=== PATIENT | male | born 1960 | race Caucasian/White ===

== ENCOUNTER 2016-10-16 19:59 | Inpatient (IN) | payer MEDICARE ==
[~2016-10-16] VITALS: Ht 182.8 cm; Wt 104.5 kg
--- NOTE | ~2016-10-16 | CON ---
[place], [place] REPORT OF CONSULTATION NAME: CHEN LEON [facility] #: [id number] UNIT #: [id number] ROOM: 528 DOCTOR: GELY CARDOSO MD BIRTHDATE: [birth year] DOS: 10/17/2016 REASON FOR CONSULTATION: Assess for acute shortness of breath. HISTORY OF PRESENT ILLNESS: A 56-year-old white morbid male who has been known to me from the past, briefly seen in the office once in the hospital. He has been diagnosed with tobacco related interstitial and respiratory bronchiolitis, pulmonary fibrosis with pneumoconiosis. [facility] and has not been seen in my office since 2013. He has been admitted to the hospital, as he developed symptoms of increased shortness of breath that has been gradually worsen. 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 The patient was noted to be a very good historian and able to give me the history completely. The patient, however, was noted with oxygen dependency and use oxygen supplementation about 3 liters at rest and 8 liters with exertion and 4 liters at night. The patient does complain of symptoms of shortness breath, which has occurred recently. He has been noted with small amount of sputum expectoration with streaking amount of blood. He denies symptoms of chest pain with current symptom. The patient does have some symptoms of wheezing as well. REVIEW OF SYSTEMS: CONSTITUTIONAL SYMPTOMS: Fatigue and tiredness with naturopathy, fever. EYES: Denies any burning, redness, or tenderness. EARS, NOSE, THROAT: No sore throat, hoarseness, otalgia, postnasal drainage or epistaxis. CARDIOVASCULAR: Denies any pain, edema or pain of the lower extremities. GASTROINTESTINAL: Denies dysphagia, nausea, vomiting, diarrhea, abdominal pain, hematemesis, melena, or hematochezia. SKIN: Denies lesions or rashes. MUSCULOSKELETAL: Denies acute joint pain, redness, or tenderness. CENTRAL NERVOUS SYSTEM: Denies dizziness, headache, diplopia or seizures. Remaining systems were reviewed were noted all negative. PAST MEDICAL HISTORY: 1. 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 Details were unknown. 2. History of centrilobular emphysema. 3. Chronic obesity. 4. Chronic hypoxic respiratory failure, dependent on oxygen. PAST SURGICAL HISTORY: 1. Breast biopsy of the right upper lobe was done in [facility] on 12/01/2016. 2. Right knee arthroscopy. 3. Vocal cord polypectomy, which is benign. SOCIAL HISTORY: The patient lives at home. Denied any history of alcohol use or any illicit drugs. He has been noted tobacco use, 1 pack of cigarettes per day, started as teenager that was discontinued in 02/2014. [place], [place] REPORT OF CONSULTATION NAME: CHEN LEON UNIT #: [id number] ROOM: 528 DOCTOR: ULICES LOGAN MD,GELY BIRTHDATE: [birth year] FAMILY HISTORY: Mother with history of arthritis age of 8484 years old. Father history was not known at this time. HOME MEDICATIONS: Noted use of Proventil HFA inhaler, Fosamax, recent prescription of the amoxicillin, vitamin D, Advair 500/50, metoprolol tartrate, omeprazole, prednisone 30 mg daily, Bactrim DS and the Spiriva. DRUG ALLERGY HISTORY: No known drug allergies. PHYSICAL EXAMINATION: GENERAL: This is a 56-year-old white male who has been currently noted awake and alert without any acute distress at the time of assessment, using oxygen supplementation nasal cannula. VITAL SIGNS: Height is 6 feet, weight 230 pounds, BMI 31.2. Vital signs showed normal temperature, respiratory rate 20, heart rate 87-100, blood pressure 132/72 to 144/79. Intake for the patient 850, output was documented only 20 mL. Pulse ox saturation on 6 liters nasal cannula 96% saturation. HEENT: Head was atraumatic. Eyes nonicterus. NECK: Supple. Decreased posterior pharyngeal space. CARDIOVASCULAR: S1 and S2, audible. LUNGS: Moderate decreased breath sounds were noted with scattered crackles and wheezing. ABDOMEN: Soft, obese, and nontender. EXTREMITIES: No clubbing, cyanosis or edema, mild clubbing of the fingers of the hands were noted. The extremities shows rather tenderness. Cranial nerves 2-12 intact. No focal deficit. MUSCULOSKELETAL: Does not show any acute deformities. SKIN: No lesions or rashes. LABORATORY DATA: PTT yesterday was noted normal. Lactic acid was noted 2.1, 1.8 later on followup. Arterial blood gas 4 liters, pH 7.45, pCO2 of 38, pO2 of 66.2 on 4 L nasal cannula. CBC was yesterday on admission shows hemoglobin 8.2, hematocrit 26.0, platelet count 255,000. CMP on admission, BUN 22, creatinine 1.56, glucose normal, magnesium 1.1. CRP was noted 8.68. BMP this morning was noted as BUN 21, creatinine 1.40, glucose 160. CBC this morning, hemoglobin 7.9, hematocrit 24.7, platelet count 237,000. The Gram stain out of the sputum this morning, many white blood cells, few gram-positive cocci in pairs and chains. Chest x-ray, 1 view that was done this morning noted shows evidence of bilateral patchy infiltration that has been noted with previous chest x-ray of 03/11/2016. IMPRESSION: 1. History of interstitial lung disease with chronic hypoxic respiratory failure, oxygen dependency, currently presented to the hospital with acute infection, rather the patient has developed any superimposed acute pneumonia. The patient at this time cannot be clarified because of underlying based on abnormality of pulmonary fibrosis, known previously. 2. Possible acute ____ would be considered as well. 3. Hypomagnesemia. [place], [place] REPORT OF CONSULTATION NAME: CHEN LEON UNIT #: [id number] ROOM: 528 DOCTOR: GELY CARDOSO MD BIRTHDATE: [birth year] 4. Chronic obstructive pulmonary disease as well that has been known previous. 5. History of nocardia, which has been described previously as well. 6. Chronic steroid dependency as well. PLAN OF TREATMENT: Continue patient's home medication, in addition the patient has been started on doxycycline and currently getting Unasyn. Monitor culture results of the sputum. Obtain the medical records from the [facility]. Obtain a PA lateral chest x-ray at this time and also consider possibility of getting a CT scan of the chest if necessary for further assessment. Monitor respiratory status closely and titrate oxygen to maintain saturation 92% or greater. Usual care, other supportive therapy, plan of management and care. Further treatment changes will be done based on the progression of the illness. Continue the abstinence from tobacco use as well. The patient current body habitus was strongly suggestive of obstructive sleep apnea disorder to be considered and excluded with outpatient sleep study plan appropriate. GELY ELENA MD CM:CONSTR:REPORT OF CONSULTATION 1140 10/17/16 1258 interface
--- NOTE | ~2016-10-16 | PR ---
[place], [place] PROGRESS NOTE NAME: CHEN LEON UNIT #: [id number] ROOM: 528 DOCTOR: GELY CARDOSO MD BIRTHDATE: [birth year] DOS: 10/18/2016 SUBJECTIVE: He was still noted shortness of breath that worsened with mild exertion such as walking from his bed to the bathroom. He denies symptoms of chest pain. The cough has been noted mild to moderate, nonproductive at this time. OBJECTIVE: VITAL SIGNS: For the patient which has been recorded showed the temperature noted normal, respiratory rate 22, heart rate 88, blood pressure 125/70. HEENT: Examination shows head was atraumatic. Eyes: No icterus. Chronic obesity. NECK: Supple. CARDIOVASCULAR SYSTEM: S1, S2 audible. LUNGS: The patient noted inspiratory crackles noted with expiratory wheezing in the lungs bilaterally. ABDOMEN: Soft, nontender. LABORATORY DATA: BMP today was noted with sodium 133, BUN 22, creatinine 1.37. Remaining electrolytes were normal. CBC this morning, hemoglobin 7.7, hematocrit 23.9, platelet count normal at 253,000. The chest x-ray was done this morning, personally reviewed, shows bilateral diffuse pulmonary infiltration noted in the lungs with the previous known history of pulmonary fibrosis. By the technique or not for the patient at this time, difficult to determine if there is any partial improvement noted or if the infiltration appeared to the same. IMPRESSION: 1. The patient with history of interstitial pulmonary fibrosis, respiratory bronchiolitis related to the tobacco use. 2. Chronic hypoxic respiratory failure noted. 3. Acute exacerbation of chronic obstructive pulmonary disease as well. PLAN OF TREATMENT: No changes in the plan of therapy at this time. Continue the patient's current treatment, plan of management at this time. Continue other supportive care and treatment as in progress. Further treatment changes will be done based on the progression of the illness. No immediate treatment changes need to be done. Continuation of corticosteroids, bronchodilators, antibiotics, and other treatment as in progress. Continue the oxygen supplementation to maintain a saturation of 92% or greater. [place], [place] PROGRESS NOTE NAME: CHEN LEON UNIT #: [id number] ROOM: 528 DOCTOR: GELY CARDOSO MD BIRTHDATE: [birth year] GELY ELENA MD CM:BENSON [id number] GELY LOGAN MD 10/18/16 1042 interface
--- NOTE | ~2016-10-16 | PR ---
[place], [place] PROGRESS NOTE [id number] UNIT #: [id number] ROOM: 528 DOCTOR: ULICES LOGAN MD,GELY BIRTHDATE: [birth year] DOS: 10/20/2016 PULMONARY FOLLOWUP SUBJECTIVE: He has been noted comfortable at this time without any distress. Continue antibiotics, patient bronchodilators and other medical management. The shortness of breath has been noted still present, but gradual reduction noted. OBJECTIVE: VITAL SIGNS: Normal temperature, respiratory rate 20, heart rate 84, blood pressure 140/80. Pulse oxygen saturation on 4 liters nasal cannula 97% saturation. HEENT: Showed no new change. NECK: Supple. CARDIOVASCULAR: S1, S2 audible. LUNGS: The patient was noted without any changes. Scattered expiratory wheezing was noted, inspiratory crackles. ABDOMEN: Soft, nontender. Bowel sounds present. LABORATORY DATA: Blood culture for the patient from 10/16 showed no bacterial growth. Sputum culture was noted with isolation of yeast as well. BMP this morning; normal BUN and creatinine. CBC this morning, hemoglobin 8.1 and 25.6. Platelet count and WBC count were noted as normal. IMPRESSION: The patient with resolving acute exacerbation of chronic obstructive pulmonary disease with acute tracheobronchitis, history of chronic pulmonary fibrosis was noted as well. PLAN AND MANAGEMENT: Continue the steroids, bronchodilators, antibiotics, and other treatment as in progress. Usual care. Supportive plan of management and therapies. GELY ELENA MD CM:PNJOSE [id number] GELY LOGAN MD 10/20/16 1502 interface
--- NOTE | ~2016-10-16 | PR ---
[place], [place] PROGRESS NOTE NAME: CHEN LEON UNIT #: [id number] ROOM: 528 DOCTOR: GELY CARDOSO MD BIRTHDATE: [birth year] DOS: 10/19/2016 SUBJECTIVE: He reported reduction in shortness breath partially from yesterday. Still noted with shortness of breath with mild physical activity. Denies any symptoms of chest pain. Cough has been noted with only small amount of sputum expectoration. Denies any symptoms of chest pain or any abdominal pain. OBJECTIVE: VITAL SIGNS: For the patient which were recorded showed the temperature of the patient recorded as normal this morning, respiratory rate 18, heart rate of 92, blood pressure 144/74. HEENT: Examination shows head was atraumatic. Eyes nonicterus. NECK: Supple. CARDIOVASCULAR: S1, S2 is audible. LUNGS: Mild to moderate expiratory wheezing. Crackles of the lungs noted chronic bilaterally. ABDOMEN: Soft, nontender. LABORATORY DATA: CBC this morning was noted, WBC count normal, hemoglobin 7.7, hematocrit 24.1, platelet count of 228,000. Culture of the sputum was noted moderate growth of yeast, was noted with normal venkata isolation. IMPRESSION: 1. Currently noted with ongoing acute or chronic severe hypoxic respiratory failure with history of underlying pulmonary fibrosis. 2. Acute exacerbation of chronic obstructive pulmonary disease as well. 3. Acute tracheobronchitis, possibility of pneumonia can be completely excluded for the patient based on the current assessment of the chest x-ray of the patient because of underlying severe pulmonary fibrosis. 4. Anemia, at this time etiology is unclear. PLAN OF TREATMENT: Reduce the Solu-Medrol. Continue bronchodilators, oxygen supplementation and monitor respiratory symptoms. Ambulation was encouraged. Usual care, other supportive therapy, plan of management and care. Usual treatment. Other treatment plan and management will be done based on progression of the illness. [place], [place] PROGRESS NOTE NAME: CHEN LEON UNIT #: [id number] ROOM: 528 DOCTOR: GELY CARDOSO MD BIRTHDATE: [birth year] GELY ELENA MD CM:PNTRANS [id number] GELY LOGAN MD 10/19/16 1338 interface
[~2016-10-16 19:59] MED LIST: ACETAMINOPHEN500 M4 PO; ADVAIR 500/501 E1 INH; ALBUTEROL0.09 MG/A2 INH; ALENDRONATE SOD70 M1 PO; AMOXICILLIN875 MG PO; BACTRIM 400 MG-1 TAB PO; CALCIUM 600 +1 EA11 PO; COMBIVENT RESPIM4 GM INH; DELTASONE10 MG PO; ETHAMBUTOL HYD400 MG PO; FOSAMAX70 M1 PO; HYDROCODONE BIT1 T11 PO; IBUPROFEN 200200 MG PO; ISONIAZID300 MG PO; LEVOFLOXACIN500 MG PO; NAPROXEN500 MG PO; OMEPRAZOLE20 M2 PO; ONDANSETRON8 MG PO; PREDNICOT10 MG PO; PREDNISONE10 M1 PO; PREDNISONE5 MG PO; PRILOSEC20 M1 PO; PROVENTIL0.09 MG/A1 INH; PYRAZINAMIDE500 MG PO; PYRIDOXINE HCL50 MG PO; RIFADIN PO; RIFADIN300 MG PO; SPIRIVA -- 3018 MCG INH; SULFAMETHOXAZOL1 TA1 PO; SYMBICORT1 AE1 INH; TOPROL XL25 MG PO; VITAMIN D31000 I1 PO; VITAMIN D32000 UNI1 PO; ZITHROMAX Z PA250 MG PO; ZOCOR40 MG PO; ZYRTEC10 MG PO
[2016-10-16 20:10] VITALS: BP 121/82
[2016-10-16 20:47] LABS: HEMOGLOBIN 8.3 g/dl (14.0-18.0); MEAN CELL VOLUME 94.9 fl (80.0-94.0); MEAN CORPUSCULAR HGB 30.3 pg (27.0-31.0); MEAN CORPUSCULAR HGB CONC 31.9 g/dl (33.0-37.0); MEAN PLATELET VOLUME 8.5 fl (9.6-12.3); PLATELET COUNT AUTOMATED 255 10*3/uL (130-400); RED BLOOD COUNT 2.74 10*6/uL (4.50-5.90); RED CELL DISTRI WIDTH 15.5 % (0-14.5); WHITE BLOOD COUNT 7.7 10*3/uL (4.8-10.8)
[2016-10-16 20:54] LABS: PROTHROMBIN TIME 10.8 SECONDS (9.0-12.4)
[2016-10-16 21:03] LABS: ALKALINE PHOSPHATASE 80 U/L (45-117); BILIRUBIN, TOTAL 0.2 mg/dl (0.2-1.0); BUN 22 mg/dl (7-24); C-REACTIVE PROTEIN 8.68 MG/DL (0-0.3); CARBON DIOXIDE 26 mmol/L (21-32); CHLORIDE 100 mmol/L (98-107); EST GLOM FILT AFRICAN AMERICAN 56 ml/min; GLUCOSE 102 mg/dL (65-99); MAGNESIUM 1.1 mg/dL (1.5-2.1); POTASSIUM 4.3 mmol/L (3.5-5.1); SGOT/AST 19 IU/L (3-35); SGPT/ALT 31 U/L (12-78); SODIUM 137 mmol/L (136-145); TOTAL PROTEIN 6.9 gm/dL (6.4-8.2)
[2016-10-16 21:04] LABS: TROPONIN I < 0.015 ng/ml (<0.045)
[2016-10-16 21:06] LABS: LYMPHOCYTE # 0.2 10*3/uL (1.3-4.4); MONOCYTE # 0.3 10*3/uL (0.1-1.0); NEUTROPHIL # 7.2 10*3/uL (2.3-7.9); NEUTROPHILS 94 % (47-73); TOTAL CELLS COUNTED 100 #CELLS
[2016-10-16 21:07] LABS: PLATELET SUFFICIENCY NORMAL (NORMAL)
[2016-10-16 21:46] LABS: ABG BASE EXCESS 2.9 mmol/L (-2.0-2.0); ABG CO2 CONTENT 27.9 mmol/L (23-27); ABG HCO3 26.7 mmol/l (22-26); ARTERIAL BLOOD GAS PH 7.451 (7.35-7.45); ARTERIAL BLOOD GAS PO2 66.2 mmHg (80-90)
[2016-10-16 22:10] VITALS: BP 132/72
[2016-10-16 22:42] LABS: LA>2 REFLEX 2 HR DRAW NOW
[2016-10-16 23:00] VITALS: BP 114/71
[2016-10-16 23:30] VITALS: BP 124/74
[2016-10-17] VITALS: BP 124/74
[2016-10-17] MEDS ORDERED: AMIKIN500 MG/2 M IV (00:37)
[2016-10-17 05:58] LABS: HEMATOCRIT 24.7 % (42.0-52.0); HEMOGLOBIN 7.9 g/dl (14.0-18.0); MEAN CELL VOLUME 95.7 fl (80.0-94.0); MEAN CORPUSCULAR HGB 30.6 pg (27.0-31.0); MEAN PLATELET VOLUME 8.8 fl (9.6-12.3); PLATELET COUNT AUTOMATED 238 10*3/uL (130-400); RED BLOOD COUNT 2.58 10*6/uL (4.50-5.90); RED CELL DISTRI WIDTH 15.5 % (0-14.5); WHITE BLOOD COUNT 6.1 10*3/uL (4.8-10.8)
[2016-10-17 06:29] LABS: BUN 21 mg/dl (7-24); CARBON DIOXIDE 26 mmol/L (21-32); CHLORIDE 99 mmol/L (98-107); CHOLESTEROL 146 mg/dL (<200); EST GLOM FILT AFRICAN AMERICAN > 60 ml/min; FREE T4 0.72 ng/dl (0.76-1.46); GLUCOSE 160 mg/dL (65-99); HDL CHOLESTEROL 71 mg/dl (40-60); LDL CHOLESTEROL 65 mg/dL (9-159); MAGNESIUM 1.8 mg/dL (1.5-2.1); PHOSPHOROUS 3.7 mg/dL (2.5-4.9); POTASSIUM 4.1 mmol/L (3.5-5.1); SODIUM 136 mmol/L (136-145); TRIGLYCERIDES 51 mg/dl (<150); VLDL CHOLESTEROL 10 mg/dL (6-40)
[2016-10-17 06:35] LABS: PROTHROMBIN TIME 10.9 SECONDS (9.0-12.4)
[2016-10-17 06:39] LABS: THYROID STIM HORMONE (HS) 0.915 uIU/ml (0.358-4.75)
[2016-10-17 07:11] LABS: HYPOCHROMIA SLIGHT; MONOCYTE # 0.1 10*3/uL (0.1-1.0); NEUTROPHILS 98 % (47-73); PLATELET SUFFICIENCY NORMAL (NORMAL); TOTAL CELLS COUNTED 100 #CELLS
[2016-10-17 07:34] LABS: FOLIC ACID 1.94 ng/mL (>5.38); VITAMIN D, 25-HYDROXY 36.1 ng/mL (30-100)
[2016-10-17 08:00] VITALS: BP 144/79
[2016-10-17 11:41] VITALS: BP 126/74
[2016-10-17 13:34] LABS: BILIRUBIN NEGATIVE (NEGATIVE); BLOOD TRACE-INTACT (NEGATIVE); CLARITY SL CLOUDY (CLEAR); COLOR YELLOW (YELLOW); GLUCOSE 1+ (NEGATIVE); KETONE NEGATIVE (NEGATIVE); LEUKO ESTERASE NEGATIVE (NEGATIVE); NITRITE NEGATIVE (NEGATIVE); PROTEIN TRACE (NEGATIVE); SPECIFIC GRAVITY >= 1.030 (1.005-1.030); UROBILINOGEN 0.2 E.U./dl (0.2-1.0)
[2016-10-17 13:51] LABS: URIC ACID CRYSTALS 2+; URINE REFLEX COMMENT NO (NO); WBC 0-2 wbc/hpf (0-5)
[2016-10-17 16:00] VITALS: BP 140/73
[2016-10-17 20:00] VITALS: BP 133/81
[2016-10-18] VITALS: BP 138/82
[2016-10-18 07:03] LABS: HEMATOCRIT 23.9 % (42.0-52.0); HEMOGLOBIN 7.7 g/dl (14.0-18.0); MEAN CORPUSCULAR HGB 30.9 pg (27.0-31.0); MEAN CORPUSCULAR HGB CONC 32.2 g/dl (33.0-37.0); MEAN PLATELET VOLUME 8.7 fl (9.6-12.3); PLATELET COUNT AUTOMATED 253 10*3/uL (130-400); RED BLOOD COUNT 2.49 10*6/uL (4.50-5.90); RED CELL DISTRI WIDTH 15.7 % (0-14.5); WHITE BLOOD COUNT 8.7 10*3/uL (4.8-10.8)
[2016-10-18 07:19] LABS: BUN 22 mg/dl (7-24); CARBON DIOXIDE 24 mmol/L (21-32); CHLORIDE 102 mmol/L (98-107); EST GLOM FILT AFRICAN AMERICAN > 60 ml/min; GLUCOSE 133 mg/dL (65-99); POTASSIUM 4.2 mmol/L (3.5-5.1); SODIUM 136 mmol/L (136-145)
[2016-10-18 07:23] LABS: LYMPHOCYTE # 0.1 10*3/uL (1.3-4.4); MONOCYTE # 0.5 10*3/uL (0.1-1.0); NEUTROPHIL # 8.1 10*3/uL (2.3-7.9); NEUTROPHILS 93 % (47-73); PLATELET SUFFICIENCY NORMAL (NORMAL); POLYCHROMASIA SLIGHT; TOTAL CELLS COUNTED 100 #CELLS
[2016-10-18 08:00] VITALS: BP 125/78
[2016-10-18 12:00] VITALS: BP 135/60
[2016-10-18 16:00] VITALS: BP 133/87
[2016-10-18 20:00] VITALS: BP 129/72
[2016-10-19] VITALS: BP 131/85
[2016-10-19 05:44] LABS: HEMATOCRIT 24.1 % (42.0-52.0); HEMOGLOBIN 7.7 g/dl (14.0-18.0); MEAN CELL VOLUME 96.8 fl (80.0-94.0); MEAN CORPUSCULAR HGB 30.9 pg (27.0-31.0); MEAN PLATELET VOLUME 8.3 fl (9.6-12.3); NUCLEATED RED BLOOD CELL 0.2 % (0.0-0.0); PLATELET COUNT AUTOMATED 228 10*3/uL (130-400); RED BLOOD COUNT 2.49 10*6/uL (4.50-5.90); RED CELL DISTRI WIDTH 15.8 % (0-14.5); WHITE BLOOD COUNT 9.1 10*3/uL (4.8-10.8)
[2016-10-19 06:02] LABS: BUN 17 mg/dl (7-24); CARBON DIOXIDE 25 mmol/L (21-32); CHLORIDE 103 mmol/L (98-107); EST GLOM FILT AFRICAN AMERICAN > 60 ml/min; GLUCOSE 129 mg/dL (65-99); POTASSIUM 4.4 mmol/L (3.5-5.1); SODIUM 136 mmol/L (136-145)
[2016-10-19 06:50] LABS: LYMPHOCYTE # 0.1 10*3/uL (1.3-4.4); MONOCYTE # 0.1 10*3/uL (0.1-1.0); NEUTROPHIL # 8.9 10*3/uL (2.3-7.9); NEUTROPHILS 98 % (47-73); PLATELET SUFFICIENCY NORMAL (NORMAL); POLYCHROMASIA SLIGHT; TOTAL CELLS COUNTED 100 #CELLS
[2016-10-19 08:00] VITALS: BP 144/74
[2016-10-19 12:00] VITALS: BP 136/76
[2016-10-19 12:07] LABS: ACID FAST SPEC PROCESSING Concentration (.)
[2016-10-19 12:07] LABS: ORGANISM ID Not indicated. (.); SPECIMEN SOURCE Urine (.); STREPTOCOCCUS PNEUMONIAE AG Negative (Negative)
[2016-10-19 15:07] LABS: LEGIONELLA URINARY ANTIGEN Negative (Negative)
[2016-10-19 16:00] VITALS: BP 125/78
[2016-10-19 20:00] VITALS: BP 149/81
[2016-10-20] VITALS: BP 136/78; BP 150/90
[2016-10-20 06:16] LABS: HEMATOCRIT 25.6 % (42.0-52.0); HEMOGLOBIN 8.1 g/dl (14.0-18.0); MEAN CELL VOLUME 96.6 fl (80.0-94.0); MEAN CORPUSCULAR HGB 30.6 pg (27.0-31.0); MEAN CORPUSCULAR HGB CONC 31.6 g/dl (33.0-37.0); MEAN PLATELET VOLUME 8.5 fl (9.6-12.3); NUCLEATED RED BLOOD CELL 0.1 10*3/uL (0.0-0.0); NUCLEATED RED BLOOD CELL 0.6 % (0.0-0.0); PLATELET COUNT AUTOMATED 265 10*3/uL (130-400); RED BLOOD COUNT 2.65 10*6/uL (4.50-5.90); WHITE BLOOD COUNT 8.9 10*3/uL (4.8-10.8)
[2016-10-20 06:24] LABS: BUN 18 mg/dl (7-24); CARBON DIOXIDE 24 mmol/L (21-32); CHLORIDE 102 mmol/L (98-107); EST GLOM FILT AFRICAN AMERICAN > 60 ml/min; GLUCOSE 114 mg/dL (65-99); POTASSIUM 4.3 mmol/L (3.5-5.1); SODIUM 137 mmol/L (136-145)
[2016-10-20 06:39] LABS: LYMPHOCYTE # 0.1 10*3/uL (1.3-4.4); METAMYELOCYTES 1 % (0-0); MONOCYTE # 0.4 10*3/uL (0.1-1.0); NEUTROPHIL # 8.4 10*3/uL (2.3-7.9); NEUTROPHILS 94 % (47-73); PLATELET SUFFICIENCY NORMAL (NORMAL); POLYCHROMASIA SLIGHT; TOTAL CELLS COUNTED 100 #CELLS; TOXIC GRANULATION SLIGHT
[2016-10-20 08:00] VITALS: BP 140/88
[2016-10-20 12:00] VITALS: BP 140/80
== END 2016-10-20 13:48 | disposition home or self-care (01) | DRG 871 ==
LOC: ED 19:59 → 5E 22:12 → EDHOLD 22:12 → 5E 22:16
PROVIDERS: Emergency Medicine Emergency Medical Services; Family Medicine; Hospitalist; Internal Medicine; Internal Medicine Infectious Disease; Internal Medicine Nephrology
PROC: 02HV33Z Insertion of Infusion Device into Superior Vena Cava, Percutaneous Approach (ICD-10-PCS; principal; 2016-10-16)
DX: A41.9 Sepsis, unspecified organism (principal); N17.0 Acute kidney failure with tubular necrosis; J96.21 Acute and chronic respiratory failure with hypoxia; J18.9 Pneumonia, unspecified organism; Z99.81 Dependence on supplemental oxygen; J84.10 Pulmonary fibrosis, unspecified; J44.0 Chronic obstructive pulmonary disease with (acute) lower respiratory infection; E83.42 Hypomagnesemia; A43.0 Pulmonary nocardiosis; E44.0 Moderate protein-calorie malnutrition; J44.1 Chronic obstructive pulmonary disease with (acute) exacerbation; E53.8 Deficiency of other specified B group vitamins; J20.9 Acute bronchitis, unspecified; R65.20 Severe sepsis without septic shock; I10 Essential (primary) hypertension; E66.9 Obesity, unspecified; F17.210 Nicotine dependence, cigarettes, uncomplicated; D53.9 Nutritional anemia, unspecified; R73.9 Hyperglycemia, unspecified; M35.9 Systemic involvement of connective tissue, unspecified; F32.9 Major depressive disorder, single episode, unspecified; Z82.61 Family history of arthritis; Z83.6 Family history of other diseases of the respiratory system; Z86.11 Personal history of tuberculosis; Z68.31 Body mass index [BMI] 31.0-31.9, adult; Z79.2 Long term (current) use of antibiotics; Z79.899 Other long term (current) drug therapy

== ENCOUNTER 2016-11-14 05:22 | Emergency (ER) | payer MEDICARE, OTHER ==
[~2016-11-14] VITALS: Ht 180.3 cm; Wt 90.7 kg
--- NOTE | ~2016-11-14 | CON ---
[place], [place] REPORT OF CONSULTATION NAME: CHEN LEON UNIT #: [id number] ROOM: DOCTOR: ULICES LOGAN MD,GELY BIRTHDATE: [birth year] DOS: 11/14/2016 ELECTROCARDIOGRAM TIME: 5:39 a.m. The underlying rhythm for the patient was noted normal sinus rhythm, mild sinus tachycardia with heart rate of 115 beats per minute. Nonspecific ST-T changes were noted in 1 and aVL. GELY ELENA MD CM:CONSTR:REPORT OF CONSULTATION 1134 11/20/16 0408 interface
[~2016-11-14 05:22] MED LIST changes: +AMIKIN500 MG/2 M IV
[2016-11-14 05:42] LABS: ABG BASE EXCESS 6.7 mmol/L (-2.0-2.0); ABG O2 SATURATION 99.1 % (95-97); ARTERIAL BLOOD GAS PCO2 41.2 mmHg (35-45); ARTERIAL BLOOD GAS PH 7.482 (7.35-7.45)
[2016-11-14 05:56] LABS: HEMATOCRIT 25.2 % (42.0-52.0); MEAN CORPUSCULAR HGB 29.9 pg (27.0-31.0); MEAN CORPUSCULAR HGB CONC 31.7 g/dl (33.0-37.0); MEAN PLATELET VOLUME 8.7 fl (9.6-12.3); NUCLEATED RED BLOOD CELL 0.1 % (0.0-0.0); PLATELET COUNT AUTOMATED 382 10*3/uL (130-400); RED BLOOD COUNT 2.68 10*6/uL (4.50-5.90); RED CELL DISTRI WIDTH 15.9 % (0-14.5); WHITE BLOOD COUNT 13.9 10*3/uL (4.8-10.8)
[2016-11-14 06:00] LABS: INTERNATIONAL NORM RATIO 1.1 (2.0-3.5)
[2016-11-14 06:06] LABS: ALBUMIN 2.6 gm/dl (3.1-4.5); ALKALINE PHOSPHATASE 97 U/L (45-117); BUN 20 mg/dl (7-24); CHLORIDE 94 mmol/L (98-107); CREATININE 1.64 mg/dL (0.70-1.30); POTASSIUM 4.1 mmol/L (3.5-5.1); SGOT/AST 32 IU/L (3-35); SGPT/ALT 31 U/L (12-78); SODIUM 135 mmol/L (136-145); TOTAL PROTEIN 7.4 gm/dL (6.4-8.2)
[2016-11-14 06:10] LABS: TROPONIN I < 0.015 ng/ml (<0.045)
[2016-11-14 06:26] LABS: BASOPHILS 1 % (0-1); PLATELET SUFFICIENCY NORMAL (NORMAL); TOTAL CELLS COUNTED 100 #CELLS
[2016-11-14 07:57] LABS: ABG BASE EXCESS 6.9 mmol/L (-2.0-2.0); ABG HCO3 30.6 mmol/l (22-26); ABG O2 SATURATION 98.4 % (95-97); ARTERIAL BLOOD GAS PCO2 45.1 mmHg (35-45); ARTERIAL BLOOD GAS PH 7.456 (7.35-7.45)
[2016-11-14 11:26] LABS: BILIRUBIN NEGATIVE (NEGATIVE); BLOOD TRACE-INTACT (NEGATIVE); CLARITY CLOUDY (CLEAR); COLOR YELLOW (YELLOW); GLUCOSE NEGATIVE (NEGATIVE); KETONE NEGATIVE (NEGATIVE); LEUKO ESTERASE NEGATIVE (NEGATIVE); NITRITE NEGATIVE (NEGATIVE); SPECIFIC GRAVITY >= 1.030 (1.005-1.030); UROBILINOGEN 0.2 E.U./dl (0.2-1.0)
[2016-11-14 11:39] LABS: BACTERIA 1+; EPITHELIAL CELLS 0-2
== END 2016-11-14 13:31 | disposition short-term general hospital (02) ==
LOC: ED 05:22
PROVIDERS: Emergency Medicine; Emergency Medicine Emergency Medical Services
DX: A41.9 Sepsis, unspecified organism (principal); J18.9 Pneumonia, unspecified organism; R06.02 Shortness of breath; J44.9 Chronic obstructive pulmonary disease, unspecified; I10 Essential (primary) hypertension; Z79.899 Other long term (current) drug therapy; Z87.891 Personal history of nicotine dependence

== ENCOUNTER 2017-01-13 14:13 | Inpatient (IN) | payer MEDICARE, OTHER ==
[~2017-01-13] VITALS: Ht 183 cm; Wt 88.0 kg
[2017-01-13] VITALS (8 sets, daily range): BP systolic 107–135; BP diastolic 58–81
--- NOTE | ~2017-01-13 | CON ---
[place], [place] REPORT OF CONSULTATION NAME: CHEN LEON UNIT #: [id number] [facility]OM: [facility] DOCTOR: GELY CARDOSO MD BIRTHDATE: [birth year] DOS: 01/14/2017 The marine engineering consultant continued to review the medical record from the [facility] for about 25 minutes. REASON FOR CONSULTATION: To assess the patient for current history of nocardia pneumonia few months ago, also assess the patient for ongoing acute respiratory complaints. 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 The patient has been treated with high dose of prednisone between 25-30 mg. He has been treated in the [facility] as well as in the [facility] for that reason. He has been noted admission in [facility] in [place], [place] in latter part of the September and October 2016. The patient remains at hospital for several days with the diagnosis of cavitary pneumonia second nocardia was noted. The patient was treated with intravenous amikacin as well as received Bactrim DS rather and Augmentin. After the treatment with intravenous antibiotics, he was transitioned to oral antibiotic and currently using the Bactrim DS 1 tablet daily and also been using Augmentin from recent hospitalization in [facility]. The patient originally presented to the hospital prior to admission at the [facility] recently in [facility], he was treated for acute respiratory failure, noted progressive acute respiratory failure and transfer to [facility] where he remained for few days. The patient was treated with the BiPAP also noted acute kidney injury. The workup done for the nocardia at that time that was noted as negative. The patient was also assessed for the fungal infection and noted without any fungal infection. He has been assessed by the Pulmonary Services as well as the infectious disease specialist at that time. The patient was discharged home in stable condition from [facility]. The patient was also known with past history of pulmonary tuberculosis, which has been treated with RIPE therapy from 01/2015 until 01/2016. The patient presented to the hospital. He has been noted with worsening of the cough, which has been ongoing for the past few weeks. The symptoms of cough has been noted associated with increased shortness of breath. The patient denies symptoms of chest pain or hemoptysis with that. He has been using oxygen supplementation from 7-12 liters nasal cannula at home at different times. REVIEW OF SYSTEMS: CONSTITUTIONAL SYMPTOMS: He does have symptoms of fatigue and tiredness without symptoms of fever or chills. EYES: Denies any burning, redness, or tenderness. EARS, NOSE, AND THROAT SYMPTOMS: Denies sore throat, hoarseness, otalgia, postnasal drainage or epistaxis. The patient was noted with deafness in the right ear that developed, as he has been treated with amikacin in September and October 2016. CARDIOVASCULAR: Denies anginal pain with edema of the lower extremity, has been noted intermittently. GASTROINTESTINAL: Dysphagia, nausea, vomiting, diarrhea, abdominal pain, [place], [place] REPORT OF CONSULTATION NAME: CHEN LEON UNIT #: [id number] ROOM: [facility] DOCTOR: [facility] [birth year] hematemesis, melena, hematochezia. SKIN: Denies lesions or rashes. MUSCULOSKELETAL: Denies acute joint pain, redness, or tenderness. CENTRAL NERVOUS SYSTEM: Denies dizziness, headache, diplopia or syncopal episodes. PAST MEDICAL HISTORY: Noted with: 1. History of interstitial pulmonary fibrosis with antisynthetase syndrome. 2. History of chronic severe hypoxic respiratory failure with very high amount of oxygen supplementation up to 5 liters nasal cannula. 3. Interstitial pulmonary fibrosis. 4. History of tuberculosis treated in 2014 and 2015 with a RIPE therapy consisting of rifampin, Isoniazid, Pyrazinamide and Ethambutol for about a year. 6. Chronic prednisone dependency as well. 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 8. Left lower lobe pulmonary nodule which was also described with the CT scan of the chest at [facility] in October 2016. 9. Chronic obesity. 10. Generalized anxiety disorder. PAST SURGICAL HISTORY: Noted with: 1. Biopsy of the right upper lung with VATS in [facility] 12/01/2016 with a diagnosis of interstitial lung disease established at that time and confirmed to be antisynthetase syndrome further assessment at [facility]. 2. Right knee arthroscopy. 3. Vocal cord polypectomy. SOCIAL HISTORY: The patient lives at home. Denies history of alcohol use or any illicit drug use. Tobacco use was noted in the past, a pack of cigarettes, which was discontinued in 02/2014. FAMILY HISTORY: Noted with history of arthritis. MEDICATIONS: Current administered medication which has been listed from home used by the patient were noted as use of albuterol sulfate via nebulizer, oxygen supplementation, Fosamax, calcium carbonate, vitamin D, metoprolol tartrate, prednisone 30 mg, Bactrim DS as well as Prilosec. ALLERGIES: No known drug allergies. CURRENT MEDICATIONS: Administered medication noted use of Lovenox, Protonix, IV Solu-Medrol 60 mg q.8 hours, Mucinex 1200 mg b.i.d., DuoNeb, vancomycin, Levaquin, IV Zosyn and Bactrim DS. PHYSICAL EXAMINATION: GENERAL: This is a 56-year-old white male who was noted mild dyspnea with exertion for this minimal activity at rest with movements in the bed. Height of 6 feet, weight of 194 pounds, BMI 26. VITAL SIGNS: For the patient which were recorded, the patient showed the temperature of the patient noted as normal, respiratory rate of 32-24, heart [place], [place] REPORT OF CONSULTATION NAME: CHEN LEON UNIT #: [id number] ROOM: [facility] DOCTOR: ULICES LOGAN MD,GELY BIRTHDATE: [birth year] rate 69-112 with mild sinus tachycardia, blood pressure 140/60-121/80. Pulse oxygen saturation on 5 liters nasal cannula was 100% saturation. HEENT: Head was atraumatic, moderate obesity, facial features are noted consistent with chronic cushingoid syndrome related to the long-term prednisone use. Decreased posterior pharyngeal space with high tongue base and crowding of soft tissue structures. CARDIOVASCULAR: S1, S2 audible. LUNGS: Noted general reduction in breath sounds bilaterally with scattered expiratory wheezing without any crackles heard. ABDOMEN: Soft, nontender. EXTREMITIES: The patient noted with obesity with minimal edema. SKIN: No lesions or rashes with the visible skin on examination. [employer]: No focal deficit. Cranial nerves 2-12 intact. MUSCULOSKELETAL: No acute deformities. LABORATORY DATA: On admission, lactic acid 2.0. PT/PTT normal. CMP, glucose 150, sodium 134, chloride of 93. CBC yesterday on admission 01/13/2017, WBC count 16.4, hemoglobin 8.3, hematocrit 27.7 and platelet count was normal. Arterial blood gas on 01/13/2017, pH of 7.47, pCO2 of 43, pO2 of 81.7. CBC this morning, WBC count 12.8, hemoglobin 7.2, hematocrit 24.2, platelet count 363,000. CMP was noted as normal BUN and creatinine and other electrolytes closely. The magnesium noted 1.3. The liver function test the total protein was noted as 6.2 with albumin only 1.9. The sputum many white blood cells, few gram-positive cocci in pairs normal venkata was noted. The chest x-ray that was done on this patient on admission just one view shows large area of consolidation and cavitation lesion noted in the lungs, more on the right than the left side with increased interstitial markings as well. CT of the chest does not show any evidence of pulmonary embolism. CT scan of the chest for further examined and noted with large area of mass-like lesion with consolidation noted in the upper lungs with area of cavitation noted in the lungs. The consolidation was present in both lungs as well as in the left lingula, right middle lobe. The pulmonary fibrosis changes was also noted with diffuse micronodular nodules in the lungs bilaterally. IMPRESSION: 1. The patient who has been currently admitted to the hospital noted with acute on chronic hypoxic respiratory failure with current abnormality of the chest is highly suggestive of recurrence of the infection with a differential diagnosis would be considered as a nocardiosis involving the lung consolidation and cavitation with past history of tuberculosis treated for possible reactivation as well as invasive aspergillosis as well because of the history of long-term tobacco use. Resistant to the previous infection rather to the antibiotic would be considered as well. 2. Hearing loss. The patient related to the use of amikacin was noted more marked in the right ear. 3. History of alpha 1 antisynthetase syndrome. PLAN OF MANAGEMENT: Isolated the patient to the negative pressure isolation room for this patient. Consider possible transfer to the tertiary care center for patient further workup. The patient will definitely require bronchoscopy [place], [place] REPORT OF CONSULTATION NAME: CHEN LEON UNIT #: [id number] ROOM: [facility] DOCTOR: ULICES LOGAN MD,GELY BIRTHDATE: [birth year] and biopsy. The patient current area for this patient with additional workup to be done for the current infection. Consider addition of the antifungal treatment for this patient. Also consider MRI of the brain to be obtained to rule out nocardiosis involving the brain as well. Other supportive therapy, plan of management. DVT prophylaxis. Additional treatment changes to be done as necessary. The patient has been already consulted by the infectious disease specialist and has not been seen by them. Follow the recommendation for antibiotic coverage as well. The patient could be considered for obtaining the serology for the fungal infection, but it would be of limited use because of the current administration of the Zosyn, with positive results for the beta D glucan. Continue oxygen supplementation to maintain saturation of 92% or greater. Use of the BiPAP in case of worsening of the respiratory status could be considered also define the code status clearly with the patient, intubation and mechanical ventilation in case of progressive worsening as well. Usual care and other plan of therapy. Thank you for allowing me to participate in the care of this patient. GELY ELENA MD CM:CONSTR:REPORT OF CONSULTATION 1104 01/15/17 0208 interface
[~2017-01-13 14:13] MED LIST changes: +SEPTDS PO; -SULFAMETHOXAZOL1 TA1 PO
--- NOTE | 2017-01-13 14:45 | NUR ---
RESIDENT AND DOCTOR IN THE ROOM WITH THE PATIENT. LD TAYLOR
[2017-01-13 14:50] LABS: HEMATOCRIT 27.7 % (42.0-52.0); HEMOGLOBIN 8.3 g/dl (14.0-18.0); MEAN CELL VOLUME 87.9 fl (80.0-94.0); MEAN CORPUSCULAR HGB 26.3 pg (27.0-31.0); MEAN PLATELET VOLUME 8.7 fl (9.6-12.3); PLATELET COUNT AUTOMATED 400 10*3/uL (130-400); RED BLOOD COUNT 3.15 10*6/uL (4.50-5.90); RED CELL DISTRI WIDTH 17.3 % (0-14.5); WHITE BLOOD COUNT 16.4 10*3/uL (4.8-10.8)
[2017-01-13 14:59] LABS: ACT PARTIAL THROMBO TIME 26.7 SECONDS (20.8-31.5)
[2017-01-13 15:06] LABS: ALBUMIN 2.2 gm/dl (3.1-4.5); ALKALINE PHOSPHATASE 135 U/L (45-117); BUN 15 mg/dl (7-24); CHLORIDE 93 mmol/L (98-107); CREATININE 0.95 mg/dL (0.70-1.30); MAGNESIUM 1.4 mg/dL (1.5-2.1); POTASSIUM 4.2 mmol/L (3.5-5.1); SGOT/AST 18 IU/L (3-35); SGPT/ALT 33 U/L (12-78); SODIUM 134 mmol/L (136-145); TOTAL PROTEIN 7.3 gm/dL (6.4-8.2)
[2017-01-13 15:08] LABS: TOTAL CELLS COUNTED 100 #CELLS; TROPONIN I < 0.015 ng/ml (<0.045)
[2017-01-13 15:09] LABS: PLATELET SUFFICIENCY NORMAL (NORMAL)
--- NOTE | 2017-01-13 15:22 | NUR ---
PATIENT IS RESTING IN BED WITH FAMILY IN THE ROOM WITH THE PATIENT, SKIN IS PALE, WARM, AND DRY, RESPIRATIONS ARE LESS LABORED THEN ARRIVAL AND PATIENT IS IN AN UPRIGHT POSITION IN THE BED, CALL LIGHT IN REACH OF THE PATIENT, CONTINUING TO MONITOR THE PATIENT. LD TAYLOR
[2017-01-13 15:26] LABS: ABG HCO3 32.1 mmol/l (22-26); ABG O2 SATURATION 96.8 % (95-97); ARTERIAL BLOOD GAS PCO2 43.9 mmHg (35-45); ARTERIAL BLOOD GAS PH 7.478 (7.35-7.45); ARTERIAL BLOOD GAS PO2 81.7 mmHg (80-90)
--- NOTE | 2017-01-13 16:07 | NUR ---
PATIENT'S IV IN THE RAC 20 GAUGE WAS NOT WORK ANOTHER IV 20 GUAGE INTIATED IN THE R UPPER ARM. [facility] IV D/C. CLAUDIARN
--- NOTE | 2017-01-13 16:32 | NUR ---
CALLED REPORT ON THE PATIENT TALKED TO LD HAQ AND SHE ASKED IF WE WOULD KEEP THE PATIENT DOWN STAIRS UNTIL HE HAS HIS CAT SCAN BECAUSE THEY DO NOT HAVE TRANSPORT UPSTAIRS TODAY, CONFIRMED WITH CHARGE NURSE NADEEN CHU THAT WAS OK AT THIS TIME. LD TAYLOR
--- NOTE | 2017-01-13 16:52 | NUR ---
PATIENT IS IN CAT SCAN AT THIS TIME. LD TAYLOR
--- NOTE | 2017-01-13 17:21 | NUR ---
A 56, admitted to [facility]U, under the services of KAIT Hurtado DO with a diagnosis of SEPSIS . Chief complaint is SOB. Patient arrived via ambulance from ER. Monitor applied. Initial assessment completed. Vital signs taken and recorded. KAIT HURTADO DO notified of admission to the unit. Orders received. See assessment for past medical history, medications and allergies. Patient and/or family oriented to unit. [facility] visitation policy reviewed. Clothing/patient valuable form completed. ZAC LEA
--- NOTE | 2017-01-13 17:26 | NUR ---
PATIENT TAKEN TO THE FLOOR PLACED ON THE MONITOR AND CARE TRANSFERRED TO EUN GRIFFITHS RN. LD TAYLOR
[2017-01-13 18:11] LABS: BILIRUBIN NEGATIVE (NEGATIVE); BLOOD TRACE-LYSED (NEGATIVE); CLARITY CLEAR (CLEAR); COLOR YELLOW (YELLOW); GLUCOSE NEGATIVE (NEGATIVE); KETONE NEGATIVE (NEGATIVE); LEUKO ESTERASE NEGATIVE (NEGATIVE); NITRITE NEGATIVE (NEGATIVE); PH 6.5 (5.0-9.0); UROBILINOGEN 0.2 E.U./dl (0.2-1.0)
--- NOTE | 2017-01-13 18:13 | NUR ---
[facility] CALLED THE CONSULTATION.
[2017-01-13] MEDS ORDERED: OXYGEN NAS (18:18)
[2017-01-13] MEDS ORDERED: VENTOLIN 02.5 MG/3 M INH (18:18)
[2017-01-13 18:19] LABS: BACTERIA TRACE; WBC 0-2 wbc/hpf (0-5)
--- NOTE | 2017-01-13 18:19 | NUR ---
PT ABLE TO RECITE HIS MEDS AND EVERY DOSE EXCEPT THE ALBUTEROL NEBULIZER RX.
--- NOTE | 2017-01-13 18:28 | NUR ---
DR ELENA NOTIFIED OF CONSULTATION, REVIEWED HIS LABS, XRAYS AND ORDERS WITH HIM. ORDERS RECEIVED.
--- NOTE | 2017-01-13 19:20 | NUR ---
TYLENOL FOR HEADACHE. MARITZA PAGED AGAIN BECAUSE NO ONE HAD CALLED BACK.
--- NOTE | 2017-01-13 19:54 | NUR ---
DR. LUO ANSWERED. REVIEWED PRESENT MEDICATIONS AND TREATMENTS. ORDERS RECEIVED.
--- NOTE | 2017-01-13 20:00 | NUR ---
INSTRUCTED PT ON THE USE AND BENEFITS OF FLUTTER. DID A GOOD JOB WITH EFFORT
--- NOTE | 2017-01-13 20:14 | NUR ---
EARLIER TYLENOL EFFECTIVE. RESTING IN BED WITH HOB ELEVATED. SIDE RAILS UP X'S 2. CALL LIGHT IN REACH. PULSE OX 98% ON 5L. IV FLUIDS CONT. HEP ANN-MARIE INTACT. DYSPNEIC AT REST.
[2017-01-14] VITALS: BP 127/79
--- NOTE | 2017-01-14 00:09 | NUR ---
RESTING IN BED WITH EYES CLOSED. APPEARS TO BE SLEEPING. 02 INTACT. PULSE OX 99%. NO C/O'S VOICED.
[2017-01-14 04:00] VITALS: BP 121/80
[2017-01-14 04:52] LABS: HEMATOCRIT 24.2 % (42.0-52.0); HEMOGLOBIN 7.2 g/dl (14.0-18.0); MEAN CELL VOLUME 87.1 fl (80.0-94.0); MEAN CORPUSCULAR HGB 25.9 pg (27.0-31.0); MEAN CORPUSCULAR HGB CONC 29.8 g/dl (33.0-37.0); MEAN PLATELET VOLUME 9.2 fl (9.6-12.3); PLATELET COUNT AUTOMATED 363 10*3/uL (130-400); RED BLOOD COUNT 2.78 10*6/uL (4.50-5.90); RED CELL DISTRI WIDTH 17.2 % (0-14.5); WHITE BLOOD COUNT 12.8 10*3/uL (4.8-10.8)
[2017-01-14 05:08] LABS: TOTAL CELLS COUNTED 100 #CELLS
[2017-01-14 05:09] LABS: ALBUMIN 1.9 gm/dl (3.1-4.5); BUN 14 mg/dl (7-24); CHLORIDE 99 mmol/L (98-107); CREATININE 0.81 mg/dL (0.70-1.30); MAGNESIUM 1.3 mg/dL (1.5-2.1); PHOSPHOROUS 3.9 mg/dL (2.5-4.9); PLATELET SUFFICIENCY NORMAL (NORMAL); POLYCHROMASIA SLIGHT; POTASSIUM 4.4 mmol/L (3.5-5.1); SGOT/AST 12 IU/L (3-35); SGPT/ALT 23 U/L (12-78); SODIUM 137 mmol/L (136-145)
[2017-01-14 05:11] LABS: ALKALINE PHOSPHATASE 103 U/L (45-117); TOTAL PROTEIN 6.2 gm/dL (6.4-8.2)
[2017-01-14 05:19] LABS: THYROID STIM HORMONE (HS) 0.361 uIU/ml (0.358-4.75)
--- NOTE | 2017-01-14 06:30 | NUR ---
0600 AWAKENED FOR AM MEDS. STATES " I FEEL BETTER". IV FLUIDS CONT. 02 INTACT. MOIST COUGH CONT. NO C/O'S VOICED. CONDITION GUARDED.
--- NOTE | 2017-01-14 06:56 | NUR ---
Shift chart check completed.24 HR chart check completed.
[2017-01-14 08:00] VITALS: BP 140/60
--- NOTE | 2017-01-14 09:50 | NUR ---
HERE HELPING PATIENT DO AM CARE. DYSPNEIC/TACHYPNEIC AT REST.
--- NOTE | 2017-01-14 11:29 | NUR ---
DR ELENA CALLED IN AND SAID TO PLACE PATIENT IN NEGATIVE AIR FLOW AND HAVE ATTENDING MAKE ARRANGEMENTS TO TRANSFER PT TO [place], EITHER [facility] OR THE [facility]. DR CHAPIN HAS BEEN NOTIFIED OF THIS.
[2017-01-14 12:00] VITALS: BP 135/87
--- NOTE | 2017-01-14 12:20 | NUR ---
PT HAS BEEN PLACED IN CCU-2 WITH NEGATIVE AIRFLOW TURNED ON. EXPLANATIONS AND REASSURANCES TO HIM AND HIS .
--- NOTE | 2017-01-14 13:27 | NUR ---
DEMOGRAPHICS HAVE BEEN FAXED TO [facility]. HAVE NOT RECEIVED ANY WORD TO SEND THE PATIENT YET.
--- NOTE | 2017-01-14 14:50 | NUR ---
STILL AWAITING A BED AT [facility].
[2017-01-14] MEDS ORDERED: Solu-Medrol IV (15:18)
[2017-01-14] MEDS ORDERED: VANCO 1.751.75 GM/25 IV (15:18)
[2017-01-14] MEDS ORDERED: ZOSYN 3.373.375 GM/5 IV (15:18)
[2017-01-14] MEDS ORDERED: MUCINEX ER600 MG PO (15:18)
[2017-01-14] MEDS ORDERED: ENOXAPARIN40 MG/0.2 SC (15:18)
[2017-01-14] MEDS ORDERED: LEVOFLOXAC750 MG/150 IV (15:19)
[2017-01-14 16:00] VITALS: BP 142/77
--- NOTE | 2017-01-14 16:12 | NUR ---
DR LUO HAS VISITED AND WILL BE ENTERING NEW ANTIBIOTIC ORDERS.
--- NOTE | 2017-01-14 18:13 | NUR ---
RECEIVED CALL FROM [facility] CALL WHO CONNECTED ME TO RAQUEL AT [facility]. REPORT GIVEN. [facility] IS NOW CALLING TO MAKE AMBULANCE ARRANGEMENTS.
[2017-01-14] MEDS ORDERED: MERREM IV1 GM IV (18:20)
--- NOTE | 2017-01-14 18:37 | NUR ---
PT LET HIS KNOW BED AVAILABLE AT [place]. [facility], ROOM 45. PHONE #[phone].
--- NOTE | 2017-01-14 18:54 | NUR ---
[facility] HERE. PT LEFT HOSPITAL IN STABLE CONDITION WITH ALL OF HIS BELONGINGS. [place] NOTIFIED OF ETA.
[2017-01-15 15:07] LABS: ACID FAST SMEAR Negative (.); ACID FAST SPEC PROCESSING Concentration (.)
== END 2017-01-14 18:54 | disposition short-term general hospital (02) | DRG 871 ==
LOC: ED 14:13 → EDHOLD 15:30 → ICCU 15:30
PROVIDERS: Emergency Medicine; Internal Medicine Critical Care Medicine; ADMIT Internal Medicine
DX: A41.9 Sepsis, unspecified organism (principal); E43 Unspecified severe protein-calorie malnutrition; J96.21 Acute and chronic respiratory failure with hypoxia; J18.9 Pneumonia, unspecified organism; J84.10 Pulmonary fibrosis, unspecified; E87.1 Hypo-osmolality and hyponatremia; E83.42 Hypomagnesemia; H90.5 Unspecified sensorineural hearing loss; E88.01 Alpha-1-antitrypsin deficiency; J44.0 Chronic obstructive pulmonary disease with (acute) lower respiratory infection; F41.1 Generalized anxiety disorder; R65.20 Severe sepsis without septic shock; D64.9 Anemia, unspecified; R73.9 Hyperglycemia, unspecified; M35.9 Systemic involvement of connective tissue, unspecified; I10 Essential (primary) hypertension; E53.8 Deficiency of other specified B group vitamins; Z79.2 Long term (current) use of antibiotics; Z79.899 Other long term (current) drug therapy; Z87.891 Personal history of nicotine dependence; Z82.61 Family history of arthritis; Z68.28 Body mass index [BMI] 28.0-28.9, adult; Z79.1 Long term (current) use of non-steroidal anti-inflammatories (NSAID)

== ENCOUNTER 2017-04-23 12:10 | Emergency (ER) | payer OTHER, MEDICARE ==
[~2017-04-23] VITALS: Ht 182.8 cm; Wt 90.7 kg
[~2017-04-23 12:10] MED LIST changes: +ENOXAPARIN40 MG/0.2 SC; +LEVOFLOXAC750 MG/150 IV; +MERREM IV1 GM IV; +MUCINEX ER600 MG PO; +OXYGEN NAS; +Solu-Medrol IV; +VANCO 1.751.75 GM/25 IV; +VENTOLIN 02.5 MG/3 M INH; +ZOSYN 3.373.375 GM/5 IV
[2017-04-23] MEDS ORDERED: LISINOPRIL10 M1 PO ×2 (14:06→14:23)
== END 2017-04-23 14:26 | disposition home or self-care (01) ==
LOC: ED 12:10
DX: I10 Essential (primary) hypertension (principal); Z87.891 Personal history of nicotine dependence; Z98.890 Other specified postprocedural states; Z79.899 Other long term (current) drug therapy

== ENCOUNTER 2017-07-02 16:02 | Inpatient (IN) | payer MEDICARE, MEDICAID, OTHER ==
[~2017-07-02] VITALS: Ht 182.8 cm; Wt 91.2 kg
[2017-07-02] VITALS (10 sets, daily range): BP systolic 70–144; BP diastolic 40–80
--- NOTE | ~2017-07-02 | CON ---
[place], [place] REPORT OF CONSULTATION NAME: CHEN LEON [facility] #: [id number] UNIT #: [id number] ROOM: 519 DOCTOR: GELY CARDOSO MD BIRTHDATE: [birth year] DOS: 07/04/2017 PULMONARY CONSULTATION, EVALUATION, AND MANAGEMENT REASON FOR CONSULTATION: Assess the patient's current increased respiratory symptoms with acute pneumonia with past history of advanced pulmonary fibrosis with respiratory failure. REQUESTED BY: This consultation is requested hospitalist services. HISTORY OF PRESENT ILLNESS: This is a 57-year-old white male patient who has been known with past history of pulmonary fibrosis related to antisynthetase syndrome. The patient has been treated with the steroids long-term as well as oxygen supplementation with the medical management of respiratory failure. The diagnosis of the patient has been achieved with a lung biopsy. The patient has been noted with symptoms of shortness of breath, which has been noted gradually worsening the patient reported prior to the current hospitalization. The patient has been admitted to the hospital on 07/02/2017 under the care of the hospitalist services. He was also noted with hypotension as well with a blood pressure systolic recorded in the 60s. Coughing has been also developed in the patient with clear to yellow sputum expectoration about 4 days prior to admission to the hospital. He denies any symptoms of chest pain with that. The patient denies any symptoms of wheezing. He does use oxygen supplementation up to 8 liters nasal cannula for the medical management of severe hypoxic respiratory failure. He has been suspected with diagnosis of acute pneumonia with the patient's chest x-ray and other lab assessment, currently treated with antibiotics. He is still noted with significant shortness of breath, which is present at rest as well. He does have a cough with minimum sputum expectoration. There were no symptoms of hemoptysis reported by the patient. There were no symptoms of wheezing. REVIEW OF SYSTEMS: CONSTITUTIONAL SYMPTOMS: Fatigue and tiredness noted with current symptoms. There were no symptoms of fever or chills reported. EYES: Denies any blurry vision. Denies any symptoms of diplopia, dryness, or redness. ENT: Denies any sinus pressure or pain. Denies symptoms of postnasal drainage, sore throat, or hoarseness. CARDIOVASCULAR: Denies any pain of the lower extremities, palpitations, or angina pain. GASTROINTESTINAL: Denies dysphagia, nausea, vomiting, diarrhea, abdominal pain, hematemesis, melena, or hematochezia. Denies any symptoms of abnormal weight loss. GENITOURINARY: Denies symptoms of dysuria, suprapubic pain, or hematuria. MUSCULOSKELETAL: The patient denies any acute joint pain, redness, or tenderness. CENTRAL NERVOUS SYSTEM: Overall weakness and fatigue for the patient was reported with no focal neurologic deficit or tingling sensation of the extremities. [place], [place] REPORT OF CONSULTATION NAME: CHEN LEON UNIT #: [id number] ROOM: [facility] DOCTOR: GELY CARDOSO MD BIRTHDATE: [birth year] Remaining systems were reviewed and they were noted all negative. PAST MEDICAL HISTORY: 1. Longstanding interstitial pulmonary fibrosis and antisynthetase syndrome. 2. Chronic respiratory failure, with oxygen supplementation about 8 liters nasal cannula currently used by the patient. 3. Past history of tuberculosis, which has been treated in 2014 and 2015 with RIPE therapy. The patient received the treatment for 1 year. 4. Chronic prednisone use and dependence, currently using prednisone 30 mg daily. 5. History of nocardia infection in October 2016, treated with the Bactrim and other medications including amikacin. 6. History of pulmonary nodule in the left lower lobe. 7. Chronic obesity. 8. General anxiety disorder. PAST SURGICAL HISTORY: 1. Right upper lung biopsy of the patient done with the VATS procedure in [facility] on 12/01/2016 with the diagnosis established for the patient as interstitial pulmonary fibrosis, confirmation of diagnosis was done, cause was determined to be antisynthetase syndrome for the patient as the patient was assessed at [facility]. 2. Right knee arthroscopy. 3. Vocal cord polypectomy. 4. Fiberoptic bronchoscopy previously. SOCIAL HISTORY: The patient lives at home. Denies history of alcohol use or any illicit drugs. Tobacco use was noted previously since teenager, a pack of cigarettes a day, discontinued completely in February 2014. There were no occupation related pulmonary exposure to any dust or chemicals. FAMILY HISTORY: One of the brothers has been also known with past history of pulmonary fibrosis who already . CURRENT MEDICATIONS: The current medications administered to the patient on this admission were noted as use of lisinopril, omeprazole, Mucinex, metoprolol tartrate, magnesium oxide, calcium carbonate, Lovenox for DVT prophylaxis, Solu-Medrol 60 mg q. 8, terbinafine, Levaquin, vancomycin, and IV Zosyn. ALLERGIES: The patient noted with no known drug allergies. PHYSICAL EXAMINATION: GENERAL: This is a 57-year-old male who has been currently noted to be awake and alert, with mild tachypnea at rest. Height of 5 feet 9 inches, weight 175 pounds with a BMI of 28. VITAL SIGNS: For the patient, which were recorded shows the temperature noted as normal since admission, respiratory rate of the patient recorded as 20-22, heart rate of 81-109, mild sinus tachycardia, blood pressure 148/87-119/73. Pulse oxygen saturation noted on 3 liters nasal cannula at rest is 97% saturation. [place], [place] REPORT OF CONSULTATION NAME: CHEN LEON UNIT #: [id number] ROOM: [facility] DOCTOR: GELY CARDOSO MD BIRTHDATE: [birth year] HEENT: Head was atraumatic. Eyes nonicterus. Garcia facies for the patient noted secondary to chronic prednisone use with double chin face, with deposition of fat rather on the face. NECK: Supple. Head was atraumatic. CARDIOVASCULAR: S1 and S2 was audible. LUNGS: Noted with crackles of the lungs noted bilaterally and diffusely. There was no wheezing. ABDOMEN: Noted soft, mild to moderate obesity without any tenderness. Bowel sounds present. SKIN: Visible skin, the patient noted without any lesions or rashes. CENTRAL NERVOUS SYSTEM: Cranial nerves 2-12 intact. MUSCULOSKELETAL: Without any acute deformities. EXTREMITIES: The patient was noted with evidence of clubbing of the fingers. DIAGNOSTIC STUDIES AND LABORATORY DATA: Chest x-ray that was done for the patient on 07/02/2017 was reviewed and noted chronic multiple pulmonary abnormalities of the patient; however, on the chest x-ray of the patient appeared to have improved aeration of the lung, but area of pleural based mass and infiltration was noted in the right upper lung and has a diffuse infiltration in the right lung, possibility of development of either nodule or infiltration in the left lingula cannot be completely excluded. This was compared to the past chest x-ray from October 2016 comparison personally. The lactic acid noted as 2.6 on admission. The PT, PTT of the patient from 07/02/2017 was normal on admission. CMP from 07/02/2017 on admission, BUN 27, creatinine 1.37, glucose 182, sodium 135. CBC of the patient of 07/02/2017, WBC count 14.0, hemoglobin 10, hematocrit 32.2, platelet count 427,000. BMP of the patient that was done yesterday, glucose 171, normal BUN and creatinine. CBC of the patient from 07/03/2017, hemoglobin 8.6, hematocrit 28.3, platelet count was normal. WBC count was normal. The vancomycin trough level of the patient was noted as 17.4, which was normal. The BMP of the patient from 07/04/2017 was noted with BUN 25, creatinine 1.03. CBC of the patient from 07/04/2017, WBC count 16.4, hemoglobin 8.6, hematocrit 27.8, platelet count 371,000. Blood culture of the patient from 07/02/2017, both of them have not shown any abnormal bacterial growth. IMPRESSION: 1. The patient with an acute on chronic hypoxic respiratory failure noted with the current pulmonary abnormality at baseline. The patient was noted with history of pulmonary fibrosis and other abnormalities, extremely difficult to exclude any underlying pneumonia. 2. History of antisynthetase syndrome with pulmonary fibrosis. 3. Past history of tuberculosis of the patient, treated with a RIPE therapy for about a year, with resolution reported, with the patient in remission of tuberculosis. 4. History of chronic steroid use with immunosuppression, high risk for this patient developing resistant pulmonary infection including Pseudomonas aeruginosa and others. 5. History of general anxiety disorder and other symptoms. PLAN OF TREATMENT: At this time to more accurately assess the patient for any [place], [place] REPORT OF CONSULTATION NAME: CHEN LEON UNIT #: [id number] ROOM: [facility] DOCTOR: GELY CARDOSO MD BIRTHDATE: [birth year] acute process, which has developed, CT scan of the chest will be needed. CT scan of the chest will be done without contrast use to have a clear comparison with a past CT scan of the patient in this hospital from October 2016. If necessary, the patient might be considered for transfer to the [facility] where he has been more familiar and have several other testing done for comparison and further assessment. At this time, the patient has received multiple broad spectrum intravenous antibiotics including coverage for Pseudomonas aeruginosa that will be continued until it is decided that the patient does have a pneumonia or not or any other culture results are available. Supportive therapy, plan of management as well. Other supportive therapy, plan of management will be continued as in progress. Usual care. Additional treatment changes will be recommended for the patient after review of the new CT scan of the chest and any other lab test for this patient on this hospitalization. GELY ELENA MD CM:CONSTR:REPORT OF CONSULTATION 1229 07/05/17 0208 interface
--- NOTE | ~2017-07-02 | PR ---
[place], [place] PROGRESS NOTE [id number] UN[facility] #: [id number] ROOM: 519 DOCTOR: ULICES LOGAN MD,GELY BIRTHDATE: [birth year] DOS: 07/06/2017 SUBJECTIVE: The patient noted comfortable at this time without any acute distress. Resting comfortably on the bed. Shortness breath, cough and other symptoms have been progressively resolving. There were no symptoms of chest pain or any abdominal pain reported. OBJECTIVE: VITAL SIGNS: Normal temperature, respiratory rate 22, heart rate 84, blood pressure 132/90 to 132/96. Pulse oxygen saturation on 7-liter nasal cannula was 99% saturation recorded. HEENT: No new change. NECK: Supple. CARDIOVASCULAR: S1, S2 audible. LUNGS: Noted without any wheezing or crackles at the present time. Breaths are noted mild to moderately decreased, clear bilaterally. ABDOMEN: Soft, nontender. EXTREMITIES: Without any acute edema. IMPRESSION: 1. Resolving acute exacerbation of chronic obstructive pulmonary disease. 2. History of advanced interstitial lung disease for the patient with antisynthetase syndrome. 3. The patient with resolving acute on chronic severe hypoxic respiratory failure and acute possibly superimposed acute pneumonia cannot be excluded. PLAN OF MANAGEMENT: No changes in the therapy for the patient at this time except decreasing Solu-Medrol for this patient to 40 mg b.i.d. dosing. Potential discharge of the patient could be considered in the morning based on the current culture results for this patient of the sputum cultures. Adjust the antibiotic accordingly. GELY ELENA MD CM:PNTRANS [id number] GELY LOGAN MD 07/07/17 0054 interface
--- NOTE | ~2017-07-02 | PR ---
[place], [place] PROGRESS NOTE NAME: CHEN LEON [facility] #: [id number] UNIT #: [id number] ROOM: [facility] DOCTOR: ULICES LOGAN MD,GELY BIRTHDATE: [birth year] DOS: 07/08/2017 SUBJECTIVE: The patient has been transferred to Intensive Care Unit yesterday, was given one dose of Lasix. The patient ____ shortness of breath. He just used his commode. The patient noted severe shortness of breath, tachypnea and also noted with wheezing this morning. He denies symptoms of chest pain or hemoptysis. Denies symptoms of abdominal pain, nausea, vomiting, hematochezia. Denies hematuria. General weakness, fatigue, persistent. Denies symptoms of headache or dizziness. Remaining systems reviewed. They were noted all negative. OBJECTIVE: VITAL SIGNS: For the patient which were recorded. The patient showed the temperature noted as normal. The respiratory rate was 22, heart rate 90, blood pressure is 155/90 to 149/89. The intake for patient a total of 1400 mL, output 3300 mL. ____ was 1900 mL. The pulse oxygen saturation on 8 liters high flow nasal cannula 96% with the BiPAP 100% saturation earlier. HEENT: Chronic obesity. NECK: Supple. CARDIOVASCULAR: S1, S2 audible without any added sounds. LUNGS: Moderate decreased breath sounds with moderate diffuse expiratory wheezing. ABDOMEN: Soft with obesity. Bowel sounds present. EXTREMITIES: Without any acute edema with skin no lesions or rashes. MUSCULOSKELETAL: Without any acute deformities. LABORATORY DATA: CBC today: WBC count 14.9, hemoglobin 10.3, hematocrit 33.6, platelet count 250,000. BMP of the patient this morning, glucose 126, BUN 26, creatinine normal. CO2 37. IMPRESSION: 1. Patient with persistent acute severe hypoxic respiratory failure with chronic hypoxic respiratory failure. 2. Acute exacerbation of chronic obstructive pulmonary disease. 3. History of pulmonary fibrosis with an antisynthetase syndrome. 4. Chronic steroid dependency. 5. Cavitation in the lungs, past treated tuberculosis. PLAN OF MANAGEMENT: Continue the BiPAP use, the patent on oxygen supplementation, bronchodilators, corticosteroid. No further use of diuretics will be needed for today. All other previous treatment to be continued. Close monitor respiratory status in the Intensive Care Unit. [place], [place] PROGRESS NOTE NAME: CHEN LEON UNIT #: [id number] ROOM: [facility] DOCTOR: ULICES LOGAN MD,GELY BIRTHDATE: [birth year] GELY ELENA MD CM:PNTRANS [id number] GELY LOGAN MD 07/09/17 0026 interface
--- NOTE | ~2017-07-02 | PR ---
[place], [place] PROGRESS NOTE NAME: CHEN LEON [facility] #: [id number] UNIT #: [id number] ROOM: 424 DOCTOR: ULICES LOGAN MD,GELY BIRTHDATE: [birth year] DOS: 07/11/2017 SUBJECTIVE: He has been noted sleepy. The patient is drowsy this morning. However, he was not noted quite anxious as was noted yesterday. The patient has been given Xanax intermittently 0.5 mg q.8 hours. He had not been noted with symptoms of chest pain, still complaining of shortness of breath. Denies symptoms of wheezing. Able to answer the questions when he has been asked the questions. He has not reported any symptoms of abdominal pain. There were no symptoms of nausea or vomiting reported by the patient. The patient denies any edema or pain in the lower extremity. Denies symptoms of headache or diplopia. Remaining review of systems limited, but they were noted all negative. OBJECTIVE: VITAL SIGNS: Normal temperature, respiratory rate 22-24, heart rate of 79-91, blood pressure is 111/80-108/77. Pulse oxygen saturation on 11 liters high-flow nasal cannula is 95% saturation. HEENT: No new change. Head was atraumatic. Eyes nonicterus. NECK: Supple. CARDIOVASCULAR: S1, S2 is audible. LUNGS: Noted with moderate decreased breath sounds. There were no wheezing or crackles heard. ABDOMEN: Soft, nontender, mild to moderate obesity. EXTREMITIES: Show chronic changes. VISIBLE SKIN: No lesions or rashes. MUSCULOSKELETAL SYMPTOMS: Without any acute deformities. CENTRAL NERVOUS SYSTEM: Lethargy. No focal deficit. LABORATORY DATA: Vancomycin trough level noted as 17.2 this morning. INR was noted 1.4, PTT was 34. CBC this morning; WBC count 12.2, hemoglobin 10, hematocrit 32.5, platelet count 275,000. IMPRESSION: 1. The patient who has been noted with acute on chronic hypercapnic and severe hypoxic respiratory failure, currently noted change in mental status, rule out recurrence of the hypercarbia. 2. 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 3. Mycobacterium tuberculosis, 1 year treatment for the patient as well. PLAN OF THERAPY: The patient will be continued on the current plan of management at the present time without any changes. Bronchodilators to be continued as well. Oxygen supplementation to be continued. Arterial blood gases will be assessed and the BiPAP may need to be reutilized. His overall prognosis remains quite poor at this time. Option is to consider long-term acute care facility consultation and treatment in this hospital with possibility of palliative care for this patient and/or transferred to the [facility], Transplant under the care of the transplant physicians. Other supportive therapy, plan of management and care. The assessment, management discussed in detail with the patient with Dr. Jeff, who is the primary attending for the patient today. [place], [place] PROGRESS NOTE NAME: CHEN LEON UNIT #: [id number] ROOM: 424 DOCTOR: GELY CARDOSO MD BIRTHDATE: [birth year] GELY ELENA MD CM:PNTRANS [phone] GELY LOGAN MD 07/12/17 0030 interface
--- NOTE | ~2017-07-02 | PR ---
[place], [place] PROGRESS NOTE NAME: CHEN LEON [facility] #: [id number] UNIT #: [id number] ROOM: 424 DOCTOR: ULICES LOGAN MD,GELY BIRTHDATE: [birth year] DOS: 07/05/2017 SUBJECTIVE: The patient noted comfortable at this time, noted reduction in symptoms of tachypnea and shortness of breath appearance from yesterday. Denies symptoms of chest pain. Cough has been noted with small amount of sputum expectoration. General weakness and fatigue were noted partially decreased. Denies symptoms of hemoptysis. Denies symptoms of acute chest pain at this time. Denies symptoms of nausea, vomiting, diarrhea. Denies symptoms of dizziness, headache, diplopia or syncopal episode. Denies symptoms of hematuria. Remaining systems were reviewed, they were noted all normal. OBJECTIVE: VITAL SIGNS: Normal temperature, respiratory rate of 18-20, heart rate 84, blood pressure is 137/91-151/95. The pulse oxygen saturation on 6 liters cannula 99% saturation. HEENT: Examination shows head was atraumatic. Eyes nonicterus. NECK: Supple. CARDIOVASCULAR: S1, S2 is audible. LUNGS: Noted with moderate decreased breath sounds in the lungs bilaterally. ABDOMEN: Soft with chronic moderate obesity. Bowel sounds present. EXTREMITIES: Noted without any acute edema. SKIN: Visible skin. No lesions or rashes. MUSCULOSKELETAL SYMPTOMS: Without any acute deformities. LABORATORY DATA CT scan of the chest, which was ordered without contrast completed shows large mass lesion with the cavitation, which are noted thick wall, 6.4 x 4.9 cm was noted previously unchanged. The patient was also noted with infiltration for the patient and consolidation in the left upper, left lower, and the right lower lobes. CT finding, the patient appeared to be similar as compared with previous CT scan of the chest on 01/11/2017 Blood culture of the patient on 07/02/2017, no bacterial growth. Sputum gram stain for the patient today were noted many white blood cells, rare gram-positive cocci in pairs and clusters and rare gram-negative bacilli. IMPRESSION: 1. The patient with acute on chronic severe hypoxic respiratory failure. 2. Acute exacerbation of chronic obstructive pulmonary disease. 3. History of pulmonary fibrosis and chronic scarring as well as the tuberculosis, which has been treated in the past. 4. Antisynthetase syndrome, pulmonary fibrosis. 5. Chronic use of the high dose of corticosteroids. 6. Possible lung transplant candidate as well. PLAN OF MANAGEMENT: At this time, the patient will be continued on current antibiotics, bronchodilators and oxygen supplementation. Monitor cultures of the sputum production of the spectrum antibiotic after review of the sputum culture results. Titrate oxygen supplementation to maintain a pulse oxygen saturation 92% or greater. Other supportive therapy, plan of management of the [place], [place] PROGRESS NOTE NAME: CHEN LEON UNIT #: [id number] ROOM: [facility] DOCTOR: UILCES LOGAN MD,GELY BIRTHDATE: [birth year] patient previously will be continued. Usual therapies and other treatment and care plan. GELY ELENA MD CM:PNTRANS [phone] GELY LOGAN MD 07/17/17 8730 interface
--- NOTE | ~2017-07-02 | PR ---
[place], [place] PROGRESS [id number] UNIT #: [id number] ROOM: [facility] DOCTOR: ULICES LOGAN MD,GELY BIRTHDATE: [birth year] DOS: 07/07/2017 PULMONARY PROGRESS NOTE SUBJECTIVE: He has been noted with increased shortness of breath overnight. He was noted with a distress that mild this morning. Shortness of breath. Oxygen supplementation was continued at 6-8 liters nasal cannula. He denies any coughing or sputum expectoration. Shortness of breath remains the same rather the main symptom. Denies symptoms of abdominal pain, nausea, or vomiting. Denies any edema or pain of lower extremity. Denies dizziness or headache. General weakness and fatigue, was reported. OBJECTIVE: VITAL SIGNS: For the patient which were recorded showed the temperature noted normal, respiratory 24-26/98-87, blood pressure 148/86-150/91. Pulse oxygen saturation on 6 liters nasal cannula 100% saturation. HEENT: Examination shows head was atraumatic, chronic moderate obesity with gray facies secondary to chronic prednisone use. NECK: Supple. CARDIOVASCULAR: S1, S2 audible. LUNGS: Moderate decreased breath sounds in the lungs bilaterally. ABDOMEN: Soft and obese. EXTREMITIES: Chronic obesity. SKIN: No lesions or rashes. MUSCULOSKELETAL: No acute deformities. GENITOURINARY: No focal deficit. Cranial nerves 2-12 intact. LABORATORY DATA: The patient's CBC today: WBC count 12.4, hemoglobin 8.9 and hematocrit 29.3, and platelet count 213,000, 93% segmented neutrophils. The culture of the sputum was noted as normal venkata. Some mold was noted, which was sent to the lab for further identifications. IMPRESSION: 1. The patient who has been noted with increased tachypnea with acute respiratory failure with chronic hypoxic respiratory failure. History of known pulmonary fibrosis with antisynthetase syndrome. 2. Chronic steroid use. 3. Past treated tuberculosis with cavitation in the lung, which was chronic as well. 4. Steroid dependency for this patient as well with gray facies. PLAN OF MANAGEMENT: Increase the Solu-Medrol dose to 60 mg of the Solu-Medrol b.i.d. Titrate oxygen, maintain saturation 90% greater. Arterial blood gases will be obtained in case of further hypoxia to reassess in consideration to use of the BiPAP. Continue other supportive therapy, plan of management and other care plan. Usual treatment. Additional treatment changes to be made based on progression of the illness. [place], [place] PROGRESS NOTE NAME: CHEN LEON UNIT #: [id number] ROOM: [facility] DOCTOR: GELY CARDOSO MD BIRTHDATE: [birth year] GELY ELENA MD CM:PNTRANS [phone] GELY LOGAN MD 07/07/171937 interface
--- NOTE | ~2017-07-02 | PR ---
[place], [place] PROGRESS NOTE NAME: CHEN LEON UNIT #: [id number] ROOM: 424 DOCTOR: GELY CARDOSO MD BIRTHDATE: [birth year] DOS: 07/09/2017 SUBJECTIVE: The patient was noted comfortable at this time without any acute distress, noted with somewhat decreased shortness of breath. He was still noted shortness breath with mild exertion. Denies any coughing or chest pain. Wheezing has been noted intermittently, mostly with exertion and currently not noted at rest. He has been using the BiPAP and other treatment as previously ordered without any changes or difficulty. OBJECTIVE: VITAL SIGNS: For the patient which has been recorded showed the blood pressure was noted 138/94, heart rate of 93, respiratory rate 24, temperature 99.2 degree Fahrenheit. Pulse oxygen saturation of the patient recorded on the high flow nasal cannula. The patient and the use of the BiPAP for this patient as 97, percent saturation 8 liters high flow and 45% with the BiPAP and use. HEENT: Examination shows chronic obesity. Garcia facies. NECK: Supple. CARDIOVASCULAR: S1, S2 audible. LUNGS: Mild to moderate decreased breath sounds, scattered expiratory wheezing, no crackles. ABDOMEN: Soft, nontender. EXTREMITIES: Chronic obesity. IMPRESSION: 1. The patient with severe acute on chronic hypoxic respiratory failure, which is acute on chronic. 2. The patient with history of pulmonary fibrosis and anti-synthetase syndrome. 3. Past treated tuberculosis cavitation in the right upper lobe. PLAN OF TREATMENT: Continue the current dose of corticosteroids, bronchodilators, and other treatment changes needs to be made. The current dose of Solu-Medrol will suffice, but the dose does not need to be changed since the patient has been noted only partial improvement in the last 24 hours. Continue use BiPAP. [place], [place] PROGRESS NOTE NAME: CHEN LEON UNIT #: [id number] ROOM: 424 DOCTOR: GELY CARDOSO MD BIRTHDATE: [birth year] GELY ELENA MD CM:PNTRANS [phone] GELY LOGAN MD 07/17/17 0832 interface
--- NOTE | ~2017-07-02 | PR ---
[place], [place] PROGRESS NOTE NAME: CHEN LEON [facility] #: [id number] UNIT #: [id number] ROOM: 424 DOCTOR: ULICES LOGAN MD,GELY BIRTHDATE: [birth year] DOS: 07/10/2017 SUBJECTIVE: He has been noted rather quite anxious this morning with some shortness of breath. He has not used the BiPAP last night. Using the oxygen supplementation nasal cannula. He had not been noted symptoms of chest pain or any acute hemoptysis. He wanted to have his anxiety medications increased with the patient as he was noted extremely nervous. He denies any symptoms of chest pain. Denies abdominal pain, nausea, vomiting, or dysphagia. The patient denies any pain or edema of the lower extremities. He denies symptoms of hemoptysis. Remaining systems were reviewed. They were noted all negative. OBJECTIVE: VITAL SIGNS: Temperature was noted as normal, respiratory rate 22-24, heart rate of 96-112, mild sinus tachycardia, blood pressure 115/77-136/71. Intake for the patient 920, output 1000 mL. Pulse ox saturation with 12 liters high flow nasal cannula was 98% with the BiPAP yesterday was noted 96% saturation. HEENT: Examination shows head was atraumatic, gray facies secondary to chronic steroid use. NECK: Supple, short and obese. CARDIOVASCULAR: S1, S2 is audible. LUNGS: The patient was noted without any crackles or rhonchi. Expiratory wheezing the patient noted, which was mild to moderate. ABDOMEN: Soft, nontender. EXTREMITIES: The patient was noted without any edema. SKIN: No lesions or rashes which induced. Scattered bruising of the skin was noticed secondary to prednisone use. CENTRAL NERVOUS SYSTEM: Cranial nerves 2-12, no focal deficit. MUSCULOSKELETAL: Without any acute deformities. LABORATORY DATA: Influenza A and B nasal washing antigens were noted negative. The BMP for this patient, which was done this morning, BUN 28, creatinine 0.65. CO2 of 43. Carbon dioxide of 91. IMPRESSION: 1. The patient who has been currently noted with metabolic alkalosis secondary to intravascular volume depletion and hypercarbia combination. 2. Acute exacerbation of chronic obstructive pulmonary disease as well. 3. Chronic steroid dependency. 4. General anxiety disorder as well. PLAN OF MANAGEMENT: The patient has been started with Xanax 0.5 mg q. hour p.r.n. use. Also, Paxil 10 mg daily will be started. I will be reducing dose of Solu-Medrol 30 mg b.i.d. at this time. He has been encouraged by use of the BiPAP for the patient treatment. Diamox will be also started for this patient as well to improve the metabolic alkalosis. The patient is not receiving any further diuretic therapy. Mild azotemia noted secondary to corticosteroids as well. [place], [place] PROGRESS NOTE [id number]IT #: [id number] ROOM: [facility] DOCTOR: GELY CARDOSO MD BIRTHDATE: [birth year] GELY ELENA MD CM:PNTRANS [phone] GELY LOGAN MD 07/10/171854 interface
[~2017-07-02 16:02] MED LIST changes: +LISINOPRIL10 M1 PO
[2017-07-02] MEDS ORDERED: VENTOLIN 02.5 MG/3 M NEB (16:13)
[2017-07-02] MEDS ORDERED: DICLO GEL1 EACH T (16:14)
[2017-07-02] MEDS ORDERED: ZESTRIL,PRINIVIL5 MG PO (16:15)
[2017-07-02] MEDS ORDERED: Lopressor25 MG PO (16:15)
[2017-07-02] MEDS ORDERED: HYDROCODONE-AC1 EAC2 PO ×2 (16:16→18:38)
[2017-07-02] MEDS ORDERED: Magnesium Oxid400 MG PO (16:16)
[2017-07-02] MEDS ORDERED: OMEPRAZOLE20 M2 PO (16:17)
[2017-07-02] MEDS ORDERED: PREDNISONE10 MG PO (16:17)
[2017-07-02] MEDS ORDERED: SEPTDS PO ×2 (16:18→18:49)
[2017-07-02] MEDS ORDERED: CELLCEPT250 MG PO (16:18)
[2017-07-02 16:55] LABS: HEMATOCRIT 32.2 % (42.0-52.0); HEMOGLOBIN 10.1 g/dl (14.0-18.0); MEAN CELL VOLUME 89.2 fl (80.0-94.0); MEAN CORPUSCULAR HGB CONC 31.4 g/dl (33.0-37.0); MEAN PLATELET VOLUME 9.3 fl (9.6-12.3); PLATELET COUNT AUTOMATED 427 10*3/uL (130-400); RED BLOOD COUNT 3.61 10*6/uL (4.50-5.90); RED CELL DISTRI WIDTH 14.9 % (0-14.5)
[2017-07-02 17:04] LABS: ACT PARTIAL THROMBO TIME 25.2 SECONDS (20.8-31.5)
[2017-07-02 17:12] LABS: ALBUMIN 2.6 gm/dl (3.1-4.5); ALKALINE PHOSPHATASE 117 U/L (45-117); BUN 27 mg/dl (7-24); CHLORIDE 98 mmol/L (98-107); CREATININE 1.37 mg/dL (0.70-1.30); POTASSIUM 4.6 mmol/L (3.5-5.1); SGOT/AST 13 IU/L (3-35); SGPT/ALT 18 U/L (12-78); SODIUM 135 mmol/L (136-145)
[2017-07-02 17:24] LABS: TROPONIN I < 0.015 ng/ml (<0.045)
[2017-07-02 17:30] LABS: PLATELET SUFFICIENCY NORMAL (NORMAL); TOTAL CELLS COUNTED 100 #CELLS
[2017-07-02] MEDS ORDERED: LOPRESSOR50 M1 PO (18:40)
[2017-07-02] MEDS ORDERED: BENZONATATE100 M1 PO (18:47)
[2017-07-02] MEDS ORDERED: TERBINAFINE15 GM T (18:50)
[2017-07-02] MEDS ORDERED: ENSURE PLUS 23237 ML PO (18:51)
[2017-07-02 19:27] LABS: BILIRUBIN NEGATIVE (NEGATIVE); BLOOD NEGATIVE (NEGATIVE); CLARITY SL CLOUDY (CLEAR); COLOR YELLOW (YELLOW); GLUCOSE TRACE (NEGATIVE); KETONE NEGATIVE (NEGATIVE); LEUKO ESTERASE NEGATIVE (NEGATIVE); NITRITE NEGATIVE (NEGATIVE); UROBILINOGEN 0.2 E.U./dl (0.2-1.0)
[2017-07-02 20:00] LABS: BACTERIA 2+; EPITHELIAL CELLS 0-2; RBC 0-2 rbc/hpf (0-2); WBC 0-2 wbc/hpf (0-5)
[2017-07-03] VITALS: BP 127/75
[2017-07-03 06:56] LABS: HEMATOCRIT 28.3 % (42.0-52.0); HEMOGLOBIN 8.6 g/dl (14.0-18.0); MEAN CELL VOLUME 90.4 fl (80.0-94.0); MEAN CORPUSCULAR HGB 27.5 pg (27.0-31.0); MEAN CORPUSCULAR HGB CONC 30.4 g/dl (33.0-37.0); MEAN PLATELET VOLUME 9.6 fl (9.6-12.3); PLATELET COUNT AUTOMATED 364 10*3/uL (130-400); RED BLOOD COUNT 3.13 10*6/uL (4.50-5.90); RED CELL DISTRI WIDTH 14.9 % (0-14.5); WHITE BLOOD COUNT 10.4 10*3/uL (4.8-10.8)
[2017-07-03 07:30] LABS: BUN 24 mg/dl (7-24); CHLORIDE 103 mmol/L (98-107); CHOLESTEROL 171 mg/dL (<200); CREATININE 1.04 mg/dL (0.70-1.30); HDL CHOLESTEROL 55 mg/dl (40-60); LDL CHOLESTEROL 96 mg/dL (9-159); PHOSPHOROUS 3.1 mg/dL (2.5-4.9); POTASSIUM 4.1 mmol/L (3.5-5.1); SODIUM 138 mmol/L (136-145); TRIGLYCERIDES 99 mg/dl (<150); VLDL CHOLESTEROL 20 mg/dL (6-40)
[2017-07-03 07:40] LABS: THYROID STIM HORMONE (HS) 0.066 uIU/ml (0.358-4.75)
[2017-07-03 07:53] LABS: PLATELET SUFFICIENCY NORMAL (NORMAL); TOTAL CELLS COUNTED 100 #CELLS
[2017-07-03 08:00] VITALS: BP 126/70
[2017-07-03 08:23] LABS: VITAMIN D, 25-HYDROXY 35.5 ng/mL (30-100)
[2017-07-03 12:00] VITALS: BP 119/73
[2017-07-03 16:00] VITALS: BP 132/78
[2017-07-03 20:00] VITALS: BP 120/78
[2017-07-04] VITALS: BP 123/78
[2017-07-04 07:02] LABS: HEMATOCRIT 27.8 % (42.0-52.0); HEMOGLOBIN 8.6 g/dl (14.0-18.0); MEAN CELL VOLUME 90.8 fl (80.0-94.0); MEAN CORPUSCULAR HGB 28.1 pg (27.0-31.0); MEAN CORPUSCULAR HGB CONC 30.9 g/dl (33.0-37.0); MEAN PLATELET VOLUME 9.3 fl (9.6-12.3); PLATELET COUNT AUTOMATED 371 10*3/uL (130-400); RED BLOOD COUNT 3.06 10*6/uL (4.50-5.90); RED CELL DISTRI WIDTH 15.2 % (0-14.5); WHITE BLOOD COUNT 16.4 10*3/uL (4.8-10.8)
[2017-07-04 07:13] LABS: BUN 25 mg/dl (7-24); CHLORIDE 104 mmol/L (98-107); CREATININE 1.03 mg/dL (0.70-1.30); FREE T4 1.03 ng/dl (0.76-1.46); POTASSIUM 4.4 mmol/L (3.5-5.1); SODIUM 138 mmol/L (136-145)
[2017-07-04 07:20] LABS: THYROID STIM HORMONE (HS) 0.166 uIU/ml (0.358-4.75)
[2017-07-04 07:47] LABS: PLATELET SUFFICIENCY NORMAL (NORMAL); POLYCHROMASIA SLIGHT; TOTAL CELLS COUNTED 100 #CELLS
[2017-07-04 08:00] VITALS: BP 148/87
[2017-07-04 12:00] VITALS: BP 125/79
[2017-07-04 16:00] VITALS: BP 130/80
[2017-07-04 20:00] VITALS: BP 132/82
[2017-07-05] VITALS: BP 151/95
[2017-07-05 08:00] VITALS: BP 130/86
[2017-07-05 12:00] VITALS: BP 137/91
[2017-07-05 16:00] VITALS: BP 131/82
[2017-07-05 20:00] VITALS: BP 135/87
[2017-07-06] VITALS: BP 137/90
[2017-07-06 06:54] LABS: HEMATOCRIT 29.3 % (42.0-52.0); HEMOGLOBIN 8.9 g/dl (14.0-18.0); MEAN CELL VOLUME 92.1 fl (80.0-94.0); MEAN CORPUSCULAR HGB CONC 30.4 g/dl (33.0-37.0); MEAN PLATELET VOLUME 9.3 fl (9.6-12.3); NUCLEATED RED BLOOD CELL 0.1 10*3/uL (0.0-0.0); NUCLEATED RED BLOOD CELL 0.4 % (0.0-0.0); PLATELET COUNT AUTOMATED 313 10*3/uL (130-400); RED BLOOD COUNT 3.18 10*6/uL (4.50-5.90); RED CELL DISTRI WIDTH 15.4 % (0-14.5); WHITE BLOOD COUNT 12.4 10*3/uL (4.8-10.8)
[2017-07-06 07:16] LABS: TOTAL CELLS COUNTED 100 #CELLS
[2017-07-06 07:17] LABS: PLATELET SUFFICIENCY NORMAL (NORMAL); POLYCHROMASIA SLIGHT
[2017-07-06 08:00] VITALS: BP 143/89
[2017-07-06 12:00] VITALS: BP 132/96
[2017-07-06 16:00] VITALS: BP 137/91
[2017-07-06 20:00] VITALS: BP 150/91
[2017-07-07] VITALS (7 sets, daily range): BP systolic 137–148; BP diastolic 86–98
[2017-07-07 13:40] LABS: ABG BASE EXCESS 7.7 mmol/L (-2.0-2.0); ABG HCO3 34.4 mmol/l (22-26); ABG O2 SATURATION 97.4 % (95-97); ARTERIAL BLOOD GAS PCO2 63.1 mmHg (35-45); ARTERIAL BLOOD GAS PH 7.354 (7.35-7.45); ARTERIAL BLOOD GAS PO2 92.3 mmHg (80-90)
[2017-07-08] VITALS: BP 124/95
[2017-07-08 04:00] VITALS: BP 151/97
[2017-07-08 05:12] LABS: BUN 22 mg/dl (7-24); CHLORIDE 92 mmol/L (98-107); CREATININE 0.83 mg/dL (0.70-1.30); POTASSIUM 4.1 mmol/L (3.5-5.1); SODIUM 137 mmol/L (136-145)
[2017-07-08 06:27] LABS: HEMATOCRIT 33.6 % (42.0-52.0); HEMOGLOBIN 10.3 g/dl (14.0-18.0); MEAN CELL VOLUME 91.6 fl (80.0-94.0); MEAN CORPUSCULAR HGB 28.1 pg (27.0-31.0); MEAN CORPUSCULAR HGB CONC 30.7 g/dl (33.0-37.0); MEAN PLATELET VOLUME 9.6 fl (9.6-12.3); NUCLEATED RED BLOOD CELL 0.3 % (0.0-0.0); PLATELET COUNT AUTOMATED 250 10*3/uL (130-400); RED BLOOD COUNT 3.67 10*6/uL (4.50-5.90); RED CELL DISTRI WIDTH 15.6 % (0-14.5); WHITE BLOOD COUNT 14.9 10*3/uL (4.8-10.8)
[2017-07-08 07:52] LABS: PLATELET SUFFICIENCY NORMAL (NORMAL); TOTAL CELLS COUNTED 100 #CELLS
[2017-07-08 08:00] VITALS: BP 149/89
[2017-07-08 12:00] VITALS: BP 155/90
[2017-07-08 16:00] VITALS: BP 134/80
[2017-07-08 20:00] VITALS: BP 156/104
[2017-07-09] VITALS: BP 137/92
[2017-07-09 04:00] VITALS: BP 138/94
[2017-07-09 08:00] VITALS: BP 153/94
[2017-07-09 12:00] VITALS: BP 148/96
[2017-07-09 16:00] VITALS: BP 172/94
[2017-07-09 20:00] VITALS: BP 148/80; BP 148/94
[2017-07-10] VITALS: BP 136/71
[2017-07-10 05:54] LABS: BUN 28 mg/dl (7-24); CHLORIDE 91 mmol/L (98-107); CREATININE 0.65 mg/dL (0.70-1.30); POTASSIUM 4.7 mmol/L (3.5-5.1); SODIUM 137 mmol/L (136-145)
[2017-07-10 08:00] VITALS: BP 115/77
[2017-07-10 12:00] VITALS: BP 101/64
[2017-07-10 16:00] VITALS: BP 145/89
[2017-07-10 20:00] VITALS: BP 140/89
[2017-07-11] VITALS: BP 108/77
[2017-07-11 07:44] LABS: HEMATOCRIT 36.8 % (42.0-52.0); HEMOGLOBIN 11.2 g/dl (14.0-18.0); MEAN CELL VOLUME 91.8 fl (80.0-94.0); MEAN CORPUSCULAR HGB 27.9 pg (27.0-31.0); MEAN CORPUSCULAR HGB CONC 30.4 g/dl (33.0-37.0); PLATELET COUNT AUTOMATED 214 10*3/uL (130-400); RED BLOOD COUNT 4.01 10*6/uL (4.50-5.90); RED CELL DISTRI WIDTH 15.1 % (0-14.5); WHITE BLOOD COUNT 18.8 10*3/uL (4.8-10.8)
[2017-07-11 08:06] LABS: PLATELET SUFFICIENCY NORMAL (NORMAL); POLYCHROMASIA SLIGHT; TOTAL CELLS COUNTED 100 #CELLS
[2017-07-11 08:15] LABS: ALBUMIN 2.2 gm/dl (3.1-4.5); ALKALINE PHOSPHATASE 209 U/L (45-117); CHLORIDE 94 mmol/L (98-107); POTASSIUM 4.1 mmol/L (3.5-5.1); SGOT/AST 26 IU/L (3-35); SGPT/ALT 33 U/L (12-78); SODIUM 135 mmol/L (136-145); TOTAL PROTEIN 6.7 gm/dL (6.4-8.2)
[2017-07-11 08:18] LABS: BUN 39 mg/dl (7-24)
[2017-07-11 09:40] LABS: CREATININE 0.64 mg/dL (0.70-1.30)
[2017-07-11 10:15] LABS: ABG BASE EXCESS 8.6 mmol/L (-2.0-2.0); ABG HCO3 36.1 mmol/l (22-26); ABG O2 SATURATION 98.2 % (95-97); ARTERIAL BLOOD GAS PCO2 66.5 mmHg (35-45); ARTERIAL BLOOD GAS PH 7.349 (7.35-7.45)
[2017-07-11 12:00] VITALS: BP 111/83
[2017-07-11] MEDS ORDERED: ACETAZOLAMIDE250 MG PO (14:26)
[2017-07-11] MEDS ORDERED: LEVAQUIN500 M2 PO (14:26)
[2017-07-11] MEDS ORDERED: SOLU-MEDRO40 MG/1 ML IV (14:26)
[2017-07-11] MEDS ORDERED: MUCINEX ER600 MG PO (14:26)
[2017-07-12 16:09] LABS: ORGANISM ID, MOLD Final report (.)
== END 2017-07-11 15:45 | DRG 871 ==
LOC: ED 16:02 → ICCU 17:45 → 5E 17:45 → EDHOLD 17:45 → 5E 18:09 → ICCU 07-07 14:10 → 4E 07-09 15:54
PROVIDERS: Internal Medicine; Internal Medicine Critical Care Medicine; Physician Assistant; Student in an Organized Health Care Education/Training Program
PROC: 5A09357 Assistance with Respiratory Ventilation, Less than 24 Consecutive Hours, Continuous Positive Airway Pressure (ICD-10-PCS; principal; 2017-07-07)
PROC: 5A09357 Assistance with Respiratory Ventilation, Less than 24 Consecutive Hours, Continuous Positive Airway Pressure (ICD-10-PCS; 2017-07-08)
PROC: 5A09357 Assistance with Respiratory Ventilation, Less than 24 Consecutive Hours, Continuous Positive Airway Pressure (ICD-10-PCS; 2017-07-09)
PROC: 5A09357 Assistance with Respiratory Ventilation, Less than 24 Consecutive Hours, Continuous Positive Airway Pressure (ICD-10-PCS; 2017-07-10)
PROC: 5A09357 Assistance with Respiratory Ventilation, Less than 24 Consecutive Hours, Continuous Positive Airway Pressure (ICD-10-PCS; 2017-07-11)
DX: A41.9 Sepsis, unspecified organism (principal); J18.9 Pneumonia, unspecified organism; J96.21 Acute and chronic respiratory failure with hypoxia; N17.0 Acute kidney failure with tubular necrosis; E43 Unspecified severe protein-calorie malnutrition; E87.3 Alkalosis; I95.9 Hypotension, unspecified; D64.9 Anemia, unspecified; A15.8 Other respiratory tuberculosis; J96.22 Acute and chronic respiratory failure with hypercapnia; J44.0 Chronic obstructive pulmonary disease with (acute) lower respiratory infection; J44.1 Chronic obstructive pulmonary disease with (acute) exacerbation; Y95 Nosocomial condition; J84.10 Pulmonary fibrosis, unspecified; M35.9 Systemic involvement of connective tissue, unspecified; R65.20 Severe sepsis without septic shock; I10 Essential (primary) hypertension; E61.2 Magnesium deficiency; M19.90 Unspecified osteoarthritis, unspecified site; R73.9 Hyperglycemia, unspecified; R94.6 Abnormal results of thyroid function studies; G62.9 Polyneuropathy, unspecified; F41.1 Generalized anxiety disorder; Z99.81 Dependence on supplemental oxygen; Z79.899 Other long term (current) drug therapy; Z87.891 Personal history of nicotine dependence; Z82.61 Family history of arthritis; Z82.5 Family history of asthma and other chronic lower respiratory diseases; Z86.11 Personal history of tuberculosis; Z79.52 Long term (current) use of systemic steroids; Z83.6 Family history of other diseases of the respiratory system; Z68.25 Body mass index [BMI] 25.0-25.9, adult